=== PATIENT | female | born 1965 | race Caucasian/White ===

== ENCOUNTER 2017-11-21 15:43 | Observation (INO) | payer OTHER ==
--- NOTE | 2017-11-21 17:35 | RAD REPORT ---
EXAM DESCRIPTION: CT - Head Brain Wo Cont - 11/21/2017 5:21 pm CLINICAL HISTORY: Right-sided headache, right-sided facial pain, transient alteration of awareness COMPARISON: CT head November 2008 TECHNIQUE: Axial 5 mm thick images of the head were obtained without IV contrast. All CT scans are performed using dose optimization technique as appropriate and may include automated exposure control or mA/KV adjustment according to patient size. FINDINGS: No intracranial hemorrhage, mass, edema or shift of mid-line structures. No acute infarcti on changes seen. No abnormal extra-axial fluid collections. Ventricles are prominent but not out of p roportion to a mild amount of volume loss. Intracranial findings are similar to the comparison. Mastoid air cells and visualized portions of the paranasal sinuses are clear. No acute bony findings. IMPRESSION: Negative non-contrast CT head examination for acute intracranial finding. CT head exami [place] [facility] is similar to 2008.
--- NOTE | 2017-11-21 17:40 | RAD REPORT ---
EXAM DESCRIPTION: CT - Facial Bones W/ Mpr - 11/21/2017 5:16 pm CLINICAL HISTORY: Right-sided headache, right-sided facial pain COMPARISON: None. TECHNIQUE: Axial 2 millimeter thick images of the facial bones were obtained with sagittal and coron al reconstruction imaging. All CT scans are performed using dose optimization technique as appropriate and may include automated exposure control or mA/KV adjustment according to patient size. FINDINGS: Mastoid air cells are clear. Trace mucosal thickening in the ethmoid air cells. Trace muco maine thickening along the floor of the left maxillary sinus. No air-fluid level. No globe or orbital c ontent abnormality identifiable. No air or foreign body in the soft tissues. Parotid, submandibular glands show no acute finding. No a bnormal mass or lymphadenopathy in the soft tissues. Left-sided mandibular condyle is normally positi oned in the glenoid. Mild degenerative changes are present. Left mandibular condyle is smaller in siz e than the left and positioned adjacent to the articular eminence rather than within the fossa. It is unknown if this is a chronic presentation for the patient or related to a slipped or displaced artic ular disc. Correlation is needed with any focal TM joint symptoms. No bone destructive changes are pr esent. No significant dental decay or destruction identifiable. IMPRESSION: No acute paranasal sinus finding and mastoid air cells are clear. Right-side mandibular condyle is positioned at the articular eminence rather than within the glenoid fossa. Configuration of the condyle suggests remodeling from a chronic dislocation or displacement. P atient could have a chronically displaced articular disc. Correlation is needed with focal acute or c hronic TMJ symptoms.
--- NOTE | 2017-11-21 17:42 | RAD REPORT ---
EXAM DESCRIPTION: RAD - Chest Single View - 11/21/2017 5:27 pm CLINICAL HISTORY: Fever COMPARISON: March 2016 TECHNIQUE: AP portable chest image was obtained 1719 hours . FINDINGS: Lungs are clear. Lung markings are similar to comparison. Heart and vasculature are normal . No measurable pleural effusion and no pneumothorax. No gross bony abnormality seen. No acute aortic findings suspected. IMPRESSION: No acute cardiopulmonary process. No significant change from comparison.
[2017-11-21 18:14] LABS: Urine Blood NEGATIVE (NEG); Urine Glucose NEGATIVE (NEG); Urine Protein NEGATIVE (NEG)
[2017-11-21 19:04] LABS: Protime INR 1.09
[2017-11-21 19:15] LABS: Absolute Lymphocytes (CBC) 0.8 K/uL (0.7-4.9); Absolute Monocytes 0.4 K/uL (0.1-1.3); Absolute Neutrophil 6.6 K/uL (1.8-8.0); Basophils % 0.5 % (0-1.3); Eosinophils % 0.9 % (0-4.4); Hematocrit 36.1 % (36.0-45.0); Lymphocytes % 10.1 % (15.3-44.8); MPV 10.1 fL (7.6-11.3); Monocytes % 4.7 % (3.3-12.3)
[2017-11-21 19:22] LABS: ALT/SGPT 95 U/L (12-78); AST/SGOT 39 U/L (15-37); Albumin 3.5 g/dL (3.4-5.0); Alkaline Phosphatase 336 U/L (45-117); Amylase Level 30 U/L (25-115); BUN Blood Urea Nitrogen 8 mg/dL (7-18); Bicarbonate 27 mmol/L (21-32); Bilirubin Direct < 0.1 mg/dL (0-0.2); Bilirubin Total 0.4 mg/dL (0.2-1.0); CKMB Creatine Kinase MB 3.7 ng/mL (0.3-3.6); Creatine Phosphokinase 350 U/L (26-192); Glucose Level 95 mg/dL (74-106); Potassium 3.5 mmol/L (3.5-5.1); Protein, Total 7.3 g/dL (6.4-8.2); Sodium Level 136 mmol/L (136-145)
--- NOTE | 2017-11-21 19:33 | EDPHYS ---
Physician Documentation [facility] Name: Melba Rooney Age: 52 yrs Sex: Female : 1965 Arrival Date: 11/21/2017 Time: 15:50 Bed 14 Private MD: Yordan Leal E ED Physician Viraj Keenan HPI: 11/21 17:02 This 52 yrs old Female presents to ER via Ambulatory with complaints of Mouth snw Problem, Dizziness. 17:02 The patient presents with pain, swelling. The problem is located in the face. Onset: snw The symptoms/episode began/occurred suddenly, and became worse today, and became persistent. Duration: The symptoms are continuous. Associated signs and symptoms: Pertinent positives: fever, inability to eat, pain. Severity of symptoms: At their worst the symptoms were severe. It is unknown whether or not the patient has had similar symptoms in the past. It is unknown whether or not the patient has recently seen a physician, states she sees Dr. Lozada. 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 - Social history:: Smoking status: Patient uses tobacco products, smokes one pack cigarettes per day. - Ebola Screening: : No symptoms or risks identified at this time. ROS: 17:01 Eyes: Negative for injury, pain, redness, and discharge, Neck: Negative for injury, snw pain, and swelling, Cardiovascular: Negative for chest pain, palpitations, and edema, Respiratory: Negative for shortness of breath, cough, wheezing, and pleuritic chest pain, Abdomen/GI: Negative for abdominal pain, nausea, vomiting, diarrhea, and constipation, Back: Negative for injury and pain, : Negative for injury, bleeding, discharge, and swelling, MS/Extremity: Negative for injury and deformity, Skin: Negative for injury, rash, and discoloration. 17:01 Constitutional: Positive for fever, malaise, poor PO intake. 17:01 ENT: Positive for dental pain. 17:01 Neuro: Positive for dizziness. Exam: 16:57 Eyes: Pupils equal round and reactive to light, extra-ocular motions intact. Lids and snw lashes normal. Conjunctiva and sclera are non-icteric and not injected. Cornea within normal limits. Periorbital areas with no swelling, redness, or edema. 16:57 Neck: Trachea midline, no thyromegaly or masses palpated, and no cervical lymphadenopathy. Supple, full range of motion without nuchal rigidity, or vertebral point tenderness. No Meningismus. Chest/axilla: Normal chest wall appearance and motion. Nontender with no deformity. No lesions are appreciated. 16:57 Respiratory: Lungs have equal breath sounds bilaterally, clear to auscultation and percussion. No rales, rhonchi or wheezes noted. No increased work of breathing, no retractions or nasal flaring. Abdomen/GI: Soft, non-tender, with normal bowel sounds. No distension or tympany. No guarding or rebound. No evidence of tenderness throughout. Back: No spinal tenderness. No costovertebral tenderness. Full range of motion. Skin: Warm, dry with normal turgor. Normal color with no rashes, no lesions, and no evidence of cellulitis. 16:57 Constitutional: The patient appears awake, restless. 16:57 Head/face: Noted is swelling, that is severe, of the right cheek. 16:57 ENT: External ear(s): are unremarkable, Ear canal(s): are normal, TM's: are normal, Nose: is normal, Mouth: Oral mucosa: dry, Posterior pharynx: is normal, Dental exam: missing teeth, diffusely, bilateral upper and lower teeth diffusely broken off at the gum line. 16:57 Cardiovascular: Rate: tachycardic, Rhythm: regular, Pulses: no pulse deficits are appreciated. 16:57 Musculoskeletal/extremity: large scar to left shoulder . 16:57 Neuro: Orientation: appropriate for stated age. 16:57 Psych: Behavior/mood is anxious, requests going to smoke prior to lab draw. Instructed pt to stay on stretcher with side rails up x 2. Vital Signs: 16:13 BP 138 / 95; Pulse 105; Resp 20 S; Temp 103.2(O); Pulse Ox 97% on R/A; Weight 81.65 kg aa5 (R); Height 5 ft. 8 in. (172.72 cm) (R); Pain 8/10; 16:40 BP 131 / 86; Pulse 90; Resp 18; Pulse Ox 96% ; tl3 18:00 BP 125 / 77; Pulse 78; Resp 16; Pulse Ox 98% ; tl3 19:17 BP 125 / 77; Pulse 87; Resp 18; Pulse Ox 99% on R/A; mt 20:30 Temp 98.6(A); fc 20:52 BP 114 / 75; Pulse 79; Resp 18; Pulse Ox 97% on R/A; mt 21:44 BP 139 / 69; Pulse 79; Temp 98.3(O); Pulse Ox 100% on R/A; tl3 16:13 Body Mass Index 27.37 (81.65 kg, 172.72 cm) aa5 Procedures: 18:39 Peripheral line: by aseptic technique a peripheral line was placed in the left external snw jugular vein. MDM: 16:48 Patient medically screened. everett 18:52 Data reviewed: vital signs, nurses notes. Data interpreted: Pulse oximetry: on room air snw is 96 %. ED course: pt requests pain medications and then talks to herself incoherently. Questioned pt as to what medications she took prior to ED, pt does not answer. 11/21 16:45 Order name: Amylase, Serum; Complete Time: 19:23 snw 11/21 16:45 Order name: Basic Metabolic Panel; Complete Time: :23 snw 11/21 16:45 Order name: Blood Culture Adult (2) snw 11/21 16:45 Order name: C-Reactive Protein; Complete Time: 19:23 snw 11/21 16:45 Order name: CBC with Diff; Complete Time: 19:26 snw 11/21 16:45 Order name: Ckmb; Complete Time: 19:23 snw 11/21 16:45 Order name: CPK; Complete Time: 19:23 snw 11/21 16:45 Order name: Lactate; Complete Time: 19:15 snw 11/21 16:45 Order name: LFT's; Complete Time: 19:23 snw 11/21 16:45 Order name: Procalcitonin; Complete Time: 19:26 snw 11/21 16:45 Order name: Protime (+inr); Complete Time: 19:15 snw 11/21 16:45 Order name: Ptt, Activated; Complete Time: 19:15 snw 11/21 16:45 Order name: Sed Rate; Complete Time: 19:26 snw 11/21 16:45 Order name: Troponin (emerg Dept Use Only); Complete Time: 19:15 snw 11/21 16:45 Order name: Chest Single View XRAY; Complete Time: 17:44 snw 11/21 16:45 Order name: CT Facial Bones W/O Con; Complete Time: 17:44 snw 11/21 16:45 Order name: CT Head Brain wo Cont; Complete Time: 17:40 snw 11/21 18:04 Order name: Urine Dipstick--Ancillary (enter results); Complete Time: 18:15 bd 11/21 18:52 Order name: UDS; Complete Time: 21:18 snw 11/21 20:18 Order name: CONS Pharmacy Consult EDMS 11/21 20:18 Order name: NPO EDMS 11/21 20:18 Order name: Echo with Doppler EDMS 11/21 20:18 Order name: Basic Metabolic Panel EDMS 11/21 20:18 Order name: Basic Metabolic Panel EDMS 11/21 20:18 Order name: CBC with Automated Diff EDMS 11/21 20:18 Order name: CBC with Automated Diff EDMS 11/21 20:18 Order name: Brain With Cont EDMS 11/21 16:45 Order name: Accucheck; Complete Time: 19:26 snw 11/21 16:45 Order name: Cardiac monitoring; Complete Time: 19:26 snw 11/21 16:45 Order name: EKG - Nurse/Tech; Complete Time: 19:26 snw 11/21 16:45 Order name: IV Saline Lock - Large Bore; Complete Time: 19:26 snw 11/21 16:45 Order name: Labs collected and sent; Complete Time: 19:26 snw 11/21 16:45 Order name: O2 Per Protocol; Complete Time: 19:26 snw 11/21 16:45 Order name: O2 Sat Monitoring; Complete Time: 19:26 snw 11/21 16:45 Order name: Urine Dipstick-Ancillary (obtain specimen); Complete Time: 19:27 snw 11/21 18:06 Order name: Vital Signs; Complete Time: 19:25 snw Administered Medications: 19:49 Drug: Clindamycin 600 mg Route: IVPB; Infused Over: 30 mins; Site: Other; tl3 21:46 Follow up: IV Status: Completed infusion; IV Intake: 50ml tl3 19:50 Drug: vancoMYCIN 1 grams Route: IVPB; Infused Over: 2 hrs; Site: left jugular; tl3 21:46 Follow up: IV Status: Completed infusion; IV Intake: 250ml tl3 19:56 Drug: NS 0.9% (30 ml/kg) 30 ml/kg Route: IV; Rate: bolus; Site: left jugular; tl3 21:47 Follow up: IV Status: Infusion continued upon admission tl3 Disposition: 11/22 16:18 Co-signature as Attending Physician, Viraj Keenan MD I agree with the assessment and everett plan of care. Disposition: 11/21/17 19:32 Hospitalization ordered by Yi Roy for Inpatient Admission. Preliminary diagnosis are Fever, unspecified, Sepsis, unspecified organism. - Bed requested for Telemetry/MedSurg (Inpatient). - Status is Inpatient Admission. tl3 - Condition is Fair. - Problem is new. - Symptoms are unchanged. UTI on Admission? No Signatures: Dispatcher [employer] EDMS Jennie Villar RN RN mw Anderson, Corey, MD MD cha Therrien, Shelly, MACHINE SPREADER-C MACHINE SPREADER-Csnw Nettie Mueller, RN RN aa5 Marisa Chase, KIRILL RN tl3 Corrections: (The following items were deleted from the chart) 11/21 19:48 19:32 Hospitalization Ordered by Yi Roy MD for Inpatient Admission. Preliminary diagnosis is Fever, unspecified; Sepsis, unspecified organism. Bed requested for Telemetry/MedSurg (Inpatient). Status is Inpatient Admission. Condition is Fair. Problem is new. Symptoms are unchanged. UTI on Admission? No. snw 22:09 19:48 11/21/2017 19:32 Hospitalization Ordered by Yi Roy MD for Inpatient tl3 Admission. Preliminary diagnosis is Fever, unspecified; Sepsis, unspecified organism. Bed requested for Telemetry/MedSurg (Inpatient). Status is Inpatient Admission. Condition is Fair. Problem is new. Symptoms are unchanged. UTI on Admission? No. mw
--- NOTE | 2017-11-21 19:33 | ER ---
Nurse's Notes [facility] Name: Melba Rooney Age: 52 yrs Sex: Female : 1965 Arrival Date: 11/21/2017 Time: 15:50 Bed 14 Private MD: Yordan Leal E Diagnosis: Fever, unspecified;Sepsis, unspecified organism Presentation: 11/21 16:12 Presenting complaint: Patient states: right jaw swelling and pain. Pt states "I have aa5 tooth pain and I woke up with the swelling today". Pt states "I feel a little confused today". Pt currently A \\T\\ O x 4. Transition of care: patient was not received from another setting of care. Onset of symptoms was November 21, 2017. Risk Assessment: Do you want to hurt yourself or someone else? Patient reports no desire to harm self or others. Care prior to arrival: None. 16:12 Method Of Arrival: Ambulatory aa5 16:12 Acuity: NED 2 aa5 19:48 Initial Sepsis Screen: Does the patient meet any 2 criteria? No. Patient's initial tl3 sepsis screen is negative. Does the patient have a suspected source of infection? No. Patient's initial sepsis screen is negative. Triage Assessment: 19:48 General: Appears unkempt. 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 - Social history:: Smoking status: Patient uses tobacco products, smokes one pack cigarettes per day. - Ebola Screening: : No symptoms or risks identified at this time. Screenin:40 Abuse screen: Denies threats or abuse. Nutritional screening: No deficits noted. tl3 Tuberculosis screening: No symptoms or risk factors identified. Fall Risk None identified. Assessment: 16:40 General: Appears comfortable, obese, unkempt, Behavior is cooperative, anxious, flat, tl3 restless. Pain: Complains of pain in mouth pain due to broken tooth. Neuro: Level of Consciousness is awake, obeys commands, confused, Oriented to person, place, situation. Cardiovascular: Heart tones S1 S2 present Patient's skin is warm and dry. Respiratory: Airway is patent Respiratory effort is even, unlabored, Respiratory pattern is regular, symmetrical. GI: No signs and/or symptoms were reported involving the gastrointestinal system. : No signs and/or symptoms were reported regarding the genitourinary system. EENT: No signs and/or symptoms were reported regarding the EENT system. Derm: No signs and/or symptoms reported regarding the dermatologic system. Musculoskeletal: No signs and/or symptoms reported regarding the musculoskeletal system. 18:00 Reassessment: Patient and/or family updated on plan of care and expected duration. Pain tl3 level reassessed. Patient is alert, oriented x 3, equal unlabored respirations, skin warm/dry/pink. pt is sometimes confused and making odd comments. 19:58 Reassessment: Patient appears in no apparent distress at this time. No changes from tl3 previously documented assessment. Patient and/or family updated on plan of care and expected duration. Pain level reassessed. Patient is alert, oriented x 3, equal unlabored respirations, skin warm/dry/pink. pt sleeping, in no distress. 21:44 Reassessment: Patient appears in no apparent distress at this time. No changes from tl3 previously documented assessment. Patient and/or family updated on plan of care and expected duration. Pain level reassessed. Patient is alert, oriented x 3, equal unlabored respirations, skin warm/dry/pink. pt awake, speaking clearly. Vital Signs: 16:13 BP 138 / 95; Pulse 105; Resp 20 S; Temp 103.2(O); Pulse Ox 97% on R/A; Weight 81.65 kg aa5 (R); Height 5 ft. 8 in. (172.72 cm) (R); Pain 8/10; 16:40 BP 131 / 86; Pulse 90; Resp 18; Pulse Ox 96% ; tl3 18:00 BP 125 / 77; Pulse 78; Resp 16; Pulse Ox 98% ; tl3 19:17 BP 125 / 77; Pulse 87; Resp 18; Pulse Ox 99% on R/A; mt 20:30 Temp 98.6(A); fc 20:52 BP 114 / 75; Pulse 79; Resp 18; Pulse Ox 97% on R/A; mt 21:44 BP 139 / 69; Pulse 79; Temp 98.3(O); Pulse Ox 100% on R/A; tl3 16:13 Body Mass Index 27.37 (81.65 kg, 172.72 cm) aa5 ED Course: 15:50 Patient arrived in ED. jb7 15:50 Yordan Leal MD is Private Physician. jb7 16:11 Arm band placed on. aa5 16:12 Triage completed. aa5 16:32 Marisa Chase, RN is Primary Nurse. tl3 16:40 [facility]C [facility] snw 16:40 Viraj Keenan MD is Attending Physician. snw 16:40 Patient has correct armband on for positive identification. Bed in low position. Call tl3 light in reach. Side rails up X2. 16:40 No provider procedures requiring assistance completed. tl3 16:55 X-ray(s) taken. tl3 17:17 CT Facial Bones W/O Con In Process Unspecified. EDMS 17:17 CT Head Brain wo Cont In Process Unspecified. EDMS 17:22 X-ray completed. Portable x-ray completed in exam room. couldn't follow commands to la2 well. 17:23 CT completed. Patient moved back from CT. bq 17:27 Chest Single View XRAY In Process Unspecified. EDMS 18:01 Urine collected: clean catch specimen, clear, leeanna colored. jb1 18:01 EKG done, by ED staff, reviewed by Baylee BOLANOS. jb1 18:43 Inserted saline lock: 18 gauge in left EJ, using aseptic technique. Blood collected. IV iw inserted by Hien Moreno NP. 19:31 Yi Roy MD is Hospitalizing Provider. snw 21:57 Patient admitted, IV remains in place. tl3 Administered Medications: 19:49 Drug: Clindamycin 600 mg Route: IVPB; Infused Over: 30 mins; Site: Other; tl3 21:46 Follow up: IV Status: Completed infusion; IV Intake: 50ml tl3 19:50 Drug: vancoMYCIN 1 grams Route: IVPB; Infused Over: 2 hrs; Site: left jugular; tl3 21:46 Follow up: IV Status: Completed infusion; IV Intake: 250ml tl3 19:56 Drug: NS 0.9% (30 ml/kg) 30 ml/kg Route: IV; Rate: bolus; Site: left jugular; tl3 21:47 Follow up: IV Status: Infusion continued upon admission tl3 Intake: 21:46 IV: 50ml; Total: 50ml. tl3 21:46 IV: 250ml; Total: 300ml. tl3 Outcome: 19:32 Decision to Hospitalize by Provider. snw 21:57 Admitted to Tele accompanied by tech, via wheelchair, with chart, Report called to tl3 Urmila ROY 21:57 Condition: stable 21:57 Instructed on the need for admit. tl3 22:09 Patient left the ED. tl3 Signatures: Dispatcher [employer] EDMS Nba Gifford1 Baylee Moreno, CHIEF PROGRAM OFFICER-C CHIEF PROGRAM OFFICER-Ifeoma Mcginnis Felicia, RN RN Joseline Kent RN RN Nettie Mejía RN RN aa5 Jax Herman7 Carmelina Alves mt, Leslie la2 Lowrey, Tammy, KIRILL RN tl3 Corrections: (The following items were deleted from the chart) 16:17 16:12 Presenting complaint: Patient states: right jaw swelling and pain. Pt states "I aa5 have tooth pain and I woke up with the swelling today". Pt states "I feel a little confused today". aa5
[2017-11-21] MEDS ORDERED: VANCOMYCIN 1 GM/250 ML BAG ONE (19:37)
[2017-11-21] MEDS ORDERED: CLINDAMYCIN 600MG/D5W 600 MG/50 ML BAG IV ONE (19:37)
[2017-11-21] MEDS ORDERED: NA CHLORIDE 0.9% 1,000 ML ONE ×2 (19:54→21:32)
[2017-11-21] MEDS ORDERED: ACETAMINOPHEN 500 MG TAB PO PRN (20:15)
[2017-11-21] MEDS ORDERED: ONDANSETRON 4 MG/2 ML VIAL IV PRN (20:15)
[2017-11-21 21:00] LABS: Barbiturates NEGATIVE (NEGATIVE); Benzodiazepines NEGATIVE (NEGATIVE); Cocaine NEGATIVE (NEGATIVE); METHAMPHETAM NEGATIVE (NEGATIVE); Methadone NEGATIVE (NEGATIVE); Opiates NEGATIVE (NEGATIVE); Phencyclidine NEGATIVE (NEGATIVE); THC Cannibis NEGATIVE (NEGATIVE)
[2017-11-21] MEDS ORDERED: NA CHLORIDE 0.9% 500 ML ONE (21:32)
[2017-11-21 22:19] VITALS: O2SAT 100
[2017-11-21] MEDS: NA CHLORIDE 0.9% 1,000 ML IV SCH (22:38)
[2017-11-21] MEDS: MORPHINE 4 MG/ML SYR IV PRN (22:45)
[2017-11-22] MEDS: MORPHINE 4 MG/ML SYR IV PRN (02:56)
[2017-11-22 05:46] LABS: Absolute Lymphocytes (CBC) 0.9 K/uL (0.7-4.9); Absolute Monocytes 0.3 K/uL (0.1-1.3); Absolute Neutrophil 2.6 K/uL (1.8-8.0); Basophils % 0.4 % (0-1.3); Eosinophils % 1.9 % (0-4.4); Hematocrit 33.5 % (36.0-45.0); Lymphocytes % 23.5 % (15.3-44.8); MCH 31.6 pg (27.0-35.0); MCV 94.8 fL (80-100); MPV 11.1 fL (7.6-11.3); Monocytes % 6.7 % (3.3-12.3); RBC Red Blood Cell Count 3.54 M/uL (3.86-4.86)
[2017-11-22 05:57] LABS: BUN Blood Urea Nitrogen 8 mg/dL (7-18); Bicarbonate 25 mmol/L (21-32); Glucose Level 85 mg/dL (74-106); Potassium 3.6 mmol/L (3.5-5.1); Sodium Level 142 mmol/L (136-145)
[2017-11-22] MEDS ORDERED: LORazepam 2 MG/ML VIAL IV PRN (06:18)
[2017-11-22] MEDS ORDERED: MORPHINE 4 MG/ML SYR IV PRN (06:19)
[2017-11-22] MEDS: NA CHLORIDE 0.9% 1,000 ML IV SCH ×2 (06:22→16:14)
[2017-11-22 06:23] LABS: Blood Morphology Comment NOT SEEN (NOT SEEN); Platelet Estimate DECR; Urine White Blood Cell Casts OK
--- NOTE | 2017-11-22 06:23 | P.HP ---
Certification for Inpatient Patient admitted to: Observation With expected LOS: <2 Midnights Patient will require the following post-hospital care: None Practitioner: I am a practitioner with admitting privileges, knowledge of patient current condition, hospital course, and medical plan of care. Services: Services provided to patient in accordance with Admission requirements found in Title 42 Section 412.3 of the Code of Federal Regulations Patient History Date of Service: 11/21/17 Reason for admission: Fever/altered mental status History of Present Illness: Patient is a 52-year-old female who has a longstanding history of MRSA infection. Patient woke up today and had confusion. She was not able to get her words out properly. Whenever she would ambulate she would drift to the right side. She states that she did not take any new medicines. She came to the hospital to be evaluated. In the ER she is still not making a lot of sense. The ER nurse practitioner was concerned that she may have had a TIA a or some other infectious cause of her altered mentation. Will admit her to the hospital and get a echocardiogram because she has dental care recent and there is concern for endocarditis. We will also get an MRI to evaluate her altered mentation. Patient is still communicating very poorly at this time and will reassess her tomorrow morning. Allergies No Known Allergies Allergy (Verified 04/14/16 08:59) Home Medications: Lisinopril [Prinivil*] 20 mg PO DAILY 10/22/16 ALPRAZolam [Alprazolam] 1 tab PO TID PRN 11/22/17 Cyclobenzaprine HCl 1 tab PO TID 11/22/17 Fluoxetine HCl [Prozac] 1 cap PO DAILY 11/22/17 Gabapentin 1 cap PO TID 11/22/17 Hydrocodone 10/APAP 325 [[place] 10/325] 1 tab PO Q6H PRN 11/22/17 Trazodone HCl 100 mg PO BEDTIME 11/22/17 - Past Medical/Surgical History Has patient received pneumonia vaccine in the past: No Diabetic: No -: HTN -: GERD -: Ulcers -: Depression -: MRSA infection -: Hysterectomy -: -: Cholecystectomy -: Left Upper arm surgery x 8 -: Incision and debridement for MRSA - Family History Father History Unknown: Yes Notes: pt was adopted Mother History Unknown: Yes Notes: pt was adopted - Social History Smoking Status: Current every day smoker Alcohol use: No CD- Drugs: No Caffeine use: Yes Place of Residence: Home Review of Systems 10-point ROS is otherwise unremarkable Physical Examination - Vital Signs Temperature: 97.0 F Blood Pressure: 118/66 Pulse: 74 Respirations: 18 Pulse Ox (%): 94 - Physical Exam General: Alert, In no apparent distress, Oriented x3 HEENT: Atraumatic, PERRLA, Mucous membr. moist/pink, EOMI, Sclerae nonicteric Neck: Supple, 2+ carotid pulse no bruit, No LAD, Without JVD or thyroid abnormality Respiratory: Clear to auscultation bilaterally, Normal air movement Cardiovascular: Regular rate/rhythm, Normal S1 S2, No murmurs Gastrointestinal: Normal bowel sounds, Soft and benign, Non-distended, No tenderness, No rebound, No guarding Musculoskeletal: No clubbing, No swelling, No tenderness Integumentary: No rashes Neurological: Normal gait, Normal speech, Normal strength at 5/5 x4 extr, Normal tone, Sensation intact, Cranial nerves 3-12 intact, Normal affect Lymphatics: No axilla or inguinal lymphadenopathy - Studies Laboratory Data (last 24 hrs) 11/21/17 18:30: PT 12.9 H, INR 1.09, APTT 30.9 11/21/17 18:30: WBC 7.9, Hgb 12.2, Hct 36.1, Plt Count 104 L 11/21/17 18:30: Sodium 136, Potassium 3.5, BUN 8, Creatinine 0.70, Glucose 95, Total Bilirubin 0.4, AST 39 H, ALT 95 H, Alkaline Phosphatase 336 H, Amylase 30 Assessment & Plan - Problems (Diagnosis) (1) Altered mental status Current Visit: Yes Status: Acute (2) Aphasia Current Visit: Yes Status: Acute (3) Right sided weakness Current Visit: Yes Status: Acute (4) History of MRSA infection Current Visit: No Status: Acute - Plan Plan: 1. Blood culture x2 2. Echocardiogram 3. MRI of the brain 4. Monitor labs closely 5. PT evaluation if her symptoms do not improve 6. Speech therapy evaluation if the aphasia continues 7. Anti-platelet therapy 8. DVT prophylaxis - Advance Directives Does patient have a Living Will: No Does patient have a Durable POA for Healthcare: No
[2017-11-22] MEDS ORDERED: PNEUMOCOCCAL VACCINE 0.5 ML IMVAC ONE (08:00)
--- NOTE | 2017-11-22 08:46 | RAD REPORT ---
EXAM DESCRIPTION: VASCarotid Artery Bilateral11/22/2017 8:24 am CLINICAL HISTORY: Ataxia COMPARISON: None FINDINGS: The velocity of the right internal carotid artery equals 118 cm/sec. The right ICA/CCA rat io 1.3 The velocity of the left internal carotid artery equals 98 cm/sec. The left ICA/CCA ratio 0.9 Mild plaque is present within the carotid arteries. The vertebral arteries demonstrate antegrade flow IMPRESSION: Mild plaque within the carotid arteries without evidence of a hemodynamically significan t stenosis
--- NOTE | 2017-11-22 08:51 | RAD REPORT ---
EXAM DESCRIPTION: US - Liver Only - 11/22/2017 8:25 am CLINICAL HISTORY: Abdominal pain/ elevated liver function test enzymes COMPARISON: 2009 FINDINGS: The liver has a normal echotexture. Hepatopetal flow seen. A discrete lesion is not visual ized. The gallbladder has been removed. The common bile duct measures 1 centimeter The spleen measures 14 centimeters. IMPRESSION: Unremarkable liver ultrasound Mild dilatation of the common bile duct may be a normal finding in this patient status post cholecyst ectomy. However, this should be correlated clinically and with appropriate lab values. Mild splenomegaly
--- NOTE | 2017-11-22 08:55 | P.PN ---
Subjective Date of Service: 11/22/17 Primary Care Provider: Dr. Ramirez Chief Complaint: Fever/altered mental status Subjective: Improving (Patient is better. No difficulty with her speech. She does have some swelling to the right facial region. Pain to her teeth is noted. Patient reports a history of chronic pain, depression, hypertension.) Physical Examination - Vital Signs Temperature: 97.0 F Blood Pressure: 118/66 Pulse: 74 Respirations: 18 Pulse Ox (%): 94 - Physical Exam General: Alert, In no apparent distress, Oriented x3, Cooperative HEENT: Atraumatic, Other (Swelling to the right facial region. Poor dentition noted throughout. Pain to the right facial area) Neck: Supple Respiratory: Clear to auscultation bilaterally, Normal air movement Cardiovascular: Normal pulses, Regular rate/rhythm Gastrointestinal: Normal bowel sounds, Soft and benign, Non-distended, No tenderness, No masses, No rebound, No guarding Musculoskeletal: No erythema, No tenderness, No warmth Integumentary: No erythema, No warmth, No cyanosis, Other (As above) Neurological: Normal speech, Normal strength at 5/5 x4 extr, Normal tone, Normal affect Lymphatics: No axilla or inguinal lymphadenopathy - Studies Laboratory Data (last 24 hrs) 11/21/17 18:30: PT 12.9 H, INR 1.09, APTT 30.9 11/21/17 18:30: WBC 7.9, Hgb 12.2, Hct 36.1, Plt Count 104 L 11/21/17 18:30: Sodium 136, Potassium 3.5, BUN 8, Creatinine 0.70, Glucose 95, Total Bilirubin 0.4, AST 39 H, ALT 95 H, Alkaline Phosphatase 336 H, Amylase 30 Medications List Reviewed: Yes Assessment & Plan - Problems (Diagnosis) (1) Facial cellulitis Current Visit: Yes Status: Acute Plan: Right-sided facial cellulitis noted with poor dentition. Pain with palpation noted. Will provide medication for pain. Will obtain MRI to further assess. Will start clindamycin. Will monitor and adjust. Patient will need to see Oral surgery as an outpatient. (2) Poor dentition Current Visit: Yes Status: Chronic Plan: Patient will need to see Oral surgery as an outpatient (3) Hypertension Current Visit: Yes Status: Chronic Plan: Will continue with her medication. Blood pressure stable. Qualifiers: Hypertension type: essential hypertension Qualified Code(s): I10 - Essential (primary) hypertension (4) Depression Current Visit: Yes Status: Chronic Plan: Will continue with her medications. Qualifiers: Depression Type: unspecified Qualified Code(s): F32.9 - Major depressive disorder, single episode, unspecified (5) Chronic pain Current Visit: Yes Status: Chronic Plan: Patient with chronic pain. Will limit muscle relaxer. Will provide medication for pain. Qualifiers: Chronic pain type: chronic pain syndrome Qualified Code(s): G89.4 - Chronic pain syndrome (6) Elevated liver function tests Current Visit: Yes Status: Acute Plan: Patient with elevated liver function. Suspect chronic hepatitis. Will check liver ultrasound. Will send for hepatitis panel. (7) Altered mental status Onset Date: 11/22/17 Current Visit: Yes Status: Acute Plan: Likely from her infection and possible over use of her pain medication and muscle relaxer. Patient appears to be at her baseline level. Will check MRI to further assess. (8) Thrombocytopenia Current Visit: Yes Status: Acute Plan: Will access for Hepatitis. Will monitor. Discharge Plan: Home Plan to discharge in: 24 Hours Time Spent Managing Pts Care (In Minutes): 55
--- NOTE | 2017-11-22 09:05 | RAD REPORT ---
EXAM DESCRIPTION: MRI - Brain Wo Cont - 11/22/2017 8:24 am CLINICAL HISTORY: Slurred speech/left sided weakness COMPARISON: none TECHNIQUE: Axial, sagittal, and coronal magnetic resonance images of the brain were obtained. Contra st was not requested FINDINGS: No abnormal signal is present within the brain. Diffusion-weighted/ADC mapping does not reveal evidence of acute infarction. The ventricles are normal caliber. An extra-axial fluid collection is not present Minimal mucoperiosteal thickening of the sinuses is noted. Mastoids are clear. IMPRESSION: Unremarkable unenhanced brain MRI
--- NOTE | 2017-11-22 09:07 | RAD REPORT ---
EXAM DESCRIPTION: MRI - MRA Head Wo Cont - 11/22/2017 8:24 am CLINICAL HISTORY: TIA/slurred speech COMPARISON: None. TECHNIQUE: Magnetic resonance angiogram of the head was performed. Source images were reviewed and reconstructed at 360 degrees rotation. FINDINGS: The visualized anterior cerebral, middle cerebral, posterior cerebral, basilar and distal internal carotid arteries do not demonstrate a significant stenosis. origin left posterior cerebral artery is present. An aneurysm is not seen IMPRESSION: Unremarkable MRA head
[2017-11-22] MEDS: ASPIRIN EC 81 MG TAB PO SCH (09:33)
--- NOTE | 2017-11-22 09:33 | EKG ---
Test Date: 2017-11-21 Test Time: 17:52:49 Activity Director: GOLD MEASUREMENT RESULTS: Intervals: Rate: 82 NC: 116 QRSD: 90 QT: 394 QTc: 460 [place]: P: 29 NC: 116 QRS: 24 T: 31 INTERPRETIVE STATEMENTS: Normal sinus rhythm Normal ECG Compared to ECG 10/22/2016 11:47:47 No significant changes Electronically Signed On 11-22-17 09:33:07 CDT by Hussein Lawrence
[2017-11-22] MEDS: GABAPENTIN 400 MG CAP PO SCH ×3 (09:34→21:22)
[2017-11-22] MEDS: FLUOXETINE 20 MG CAP PO SCH (09:35)
[2017-11-22] MEDS: CYCLOBENZAPRINE 10 MG TAB PO SCH ×3 (09:35→21:22)
[2017-11-22] MEDS: LISINOPRIL 10 MG TAB PO SCH (09:35)
[2017-11-22] MEDS: CLINDAMYCIN INJ 600 MG in NA CHLORIDE 0.9% 50 ML IV SCH ×2 (09:36→16:11)
[2017-11-22] MEDS: HYDROCODONE/APAP 10/325 TAB PO PRN ×3 (09:43→23:39)
[2017-11-22] MEDS: ALPRAZOLAM 0.25 MG TABLET PO PRN (09:46)
--- NOTE | 2017-11-22 15:32 | ECHO ---
HEIGHT: 5 ft 8 in WEIGHT: 181 lb 1 oz DATE OF STUDY: 11/22/[address]: Yi Roy MD 2-DIMENSIONAL: YES M.MODE: YES DOPPLER: YES COLOR FLOW: YES TDS: PORTABLE: DEFINITY: BUBBLE STUDY: DIAGNOSIS: ALTERED MENTAL STATUS, MURMUR CARDIAC HISTORY: CATHERIZATION: NO SURGERY: NO PROSTHETIC VALVE: NO PACEMAKER: NO MEASUREMENTS (cm) DIASTOLIC (NORMALS) SYSTOLIC (NORMALS) IVSd 0.7 (0.6-1.2) LA Diam 3.5 (1.9-4.0) LVEF 65% LVIDd 4.7 (3.5-5.7) LVIDs 3.0 (2.0-3.5) %FS 36% LVPWd 0.9 (0.6-1.2) Ao Diam 2.8 (2.0-3.7) 2 DIMENSIONAL ASSESSMENT: RIGHT ATRIUM: NORMAL LEFT ATRIUM: NORMAL RIGHT VENTRICLE: NORMAL LEFT VENTRICLE: NORMAL TRICUSPID VALVE: NORMAL MITRAL VALVE: NORMAL PULMONIC VALVE: NORMAL AORTIC VALVE: NORMAL PERICARDIAL EFFUSION: NONE AORTIC ROOT: NORMAL LEFT VENTRICULAR WALL MOTION: NORMAL DOPPLER/COLOR FLOW: MILD MITRAL REGURGITATION AND TRICUSPID REGURGITATION. NORMAL RIGHT VENTRICULAR SYSTOLIC PRESSURE. COMMENTS: NORMAL TWO DIMENSIONAL ECHOCARDIOGRAM. MILD MITRAL REGURGITATION AND TRICUSPID REGURGITATION. TECHNOLOGIST: ESTRADA SEWELL
[2017-11-22] MEDS ORDERED: ENOXAPARIN 40 MG/0.4 ML SQ SCH (17:00)
[2017-11-22] MEDS ORDERED: LOPERAMIDE HCL 2 MG CAPSULE PO PRN (19:05)
[2017-11-22] MEDS: CARVEDILOL 6.25 MG TAB PO SCH (21:00)
[2017-11-22] MEDS ORDERED: ATORVASTATIN 40 MG TAB PO SCH (21:00)
[2017-11-22] MEDS ORDERED: TRAZODONE 50 MG TABLET PO SCH (21:00)
[2017-11-23] MEDS: CLINDAMYCIN INJ 600 MG in NA CHLORIDE 0.9% 50 ML IV SCH ×2 (00:33→09:32)
[2017-11-23] MEDS: NA CHLORIDE 0.9% 1,000 ML IV SCH (04:26)
[2017-11-23] MEDS: HYDROCODONE/APAP 10/325 TAB PO PRN ×2 (05:08→10:36)
[2017-11-23 05:12] VITALS: BMI 27.6
[2017-11-23 05:26] LABS: Absolute Lymphocytes (CBC) 0.8 K/uL (0.7-4.9); Absolute Monocytes 0.2 K/uL (0.1-1.3); Basophils % 0.4 % (0-1.3); Eosinophils % 2.9 % (0-4.4); Hematocrit 30.7 % (36.0-45.0); Lymphocytes % 26.6 % (15.3-44.8); MCH 32.9 pg (27.0-35.0); MCV 95.1 fL (80-100); MPV 10.5 fL (7.6-11.3); RBC Red Blood Cell Count 3.23 M/uL (3.86-4.86)
[2017-11-23 05:45] LABS: Albumin 2.7 g/dL (3.4-5.0); Bilirubin Total 0.2 mg/dL (0.2-1.0); Magnesium 1.8 mg/dL (1.8-2.4); Potassium 3.5 mmol/L (3.5-5.1); Protein, Total 6.1 g/dL (6.4-8.2)
[2017-11-23] MEDS ORDERED: MAGNESIUM SULFATE 1 gm IVPB 1 GM/100 ML BAG IV ONE (05:56)
[2017-11-23] MEDS ORDERED: PANTOPRAZOLE 40MG TABLET PO SCH (06:30)
[2017-11-23] MEDS: LISINOPRIL 10 MG TAB PO SCH (09:24)
[2017-11-23] MEDS: ASPIRIN EC 81 MG TAB PO SCH (09:24)
[2017-11-23] MEDS: CARVEDILOL 6.25 MG TAB PO SCH (09:25)
[2017-11-23] MEDS: FLUOXETINE 20 MG CAP PO SCH (09:25)
[2017-11-23] MEDS: CYCLOBENZAPRINE 10 MG TAB PO SCH (09:25)
[2017-11-23] MEDS: GABAPENTIN 400 MG CAP PO SCH (09:25)
[2017-11-23] MEDS: ALPRAZOLAM 0.25 MG TABLET PO PRN (09:30)
[2017-11-23 09:32] VITALS: BP 135/86
[2017-11-23 09:59] VITALS: TEMP 97.4
--- NOTE | 2017-11-23 10:50 | P.DS ---
Admission Date: 11/21/17 Discharge Date: 11/23/17 Primary Care Provider: Dr. Ramirez Disposition: ROUTINE DISCHARGE Discharge Condition: GOOD Reason for Admission: Fever/altered mental status Procedures: MRI/MRA brain: No acute changes noted. No CVA noted. Echocardiogram: Ejection fraction 65%. Mild mitral and tricuspid regurgitation noted Carotid Doppler: No significant stenosis noted. Liver ultrasound: Mild splenomegaly noted. CT scan face: FINDINGS: Mastoid air cells are clear. Trace mucosal thickening in the ethmoid air cells. Trace mucosal thickening along the floor of the left maxillary sinus. No air-fluid level. No globe or orbital content abnormality identifiable. No air or foreign body in the soft tissues. Parotid, submandibular glands show no acute finding. No abnormal mass or lymphadenopathy in the soft tissues. Left- sided mandibular condyle is normally positioned in the glenoid. Mild degenerative changes are present. Left mandibular condyle is smaller in size than the left and positioned adjacent to the articular eminence rather than within the fossa. It is unknown if this is a chronic presentation for the patient or related to a slipped or displaced articular disc. Correlation is needed with any focal TM joint symptoms. No bone destructive changes are present. No significant dental decay or destruction identifiable. IMPRESSION: No acute paranasal sinus finding and mastoid air cells are clear. Right-side mandibular condyle is positioned at the articular eminence rather than within the glenoid fossa. Configuration of the condyle suggests remodeling from a chronic dislocation or displacement. Patient could have a chronically displaced articular disc. Correlation is needed with focal acute or chronic TMJ symptoms. - Problems (1) Facial cellulitis Current Visit: Yes Status: Acute (2) Poor dentition Current Visit: Yes Status: Chronic (3) Hypertension Current Visit: Yes Status: Chronic Qualifiers: Hypertension type: essential hypertension Qualified Code(s): I10 - Essential (primary) hypertension (4) Depression Current Visit: Yes Status: Chronic Qualifiers: Depression Type: unspecified Qualified Code(s): F32.9 - Major depressive disorder, single episode, unspecified (5) Chronic pain Current Visit: Yes Status: Chronic Qualifiers: Chronic pain type: chronic pain syndrome Qualified Code(s): G89.4 - Chronic pain syndrome (6) Elevated liver function tests Current Visit: Yes Status: Acute (7) Altered mental status Onset Date: 11/22/17 Current Visit: Yes Status: Acute Qualifiers: Altered mental status type: unspecified Qualified Code(s): R41.82 - Altered mental status, unspecified (8) Thrombocytopenia Current Visit: Yes Status: Acute (9) Dislocation of mandible Current Visit: Yes Status: Suspected Brief History of Present Illness: 52-year-old female presented to emergency room after some confusion when she woke up upon admission. Patient had some difficulty talking. Patient had recently been evaluated as an outpatient for poor dentition and dental infection. In the ER initial CT scan was unremarkable. The patient was admitted for further evaluation. Hospital Course: In the course of her stay her altered mental status resolved. Patient was found to have right facial cellulitis with poor dentition. Facial CT scan showed no acute findings. Right sided mandibular condyle is positioned at the articular eminence rather than then within the glenoid fossa. This likely suggests remodeling from a chronic dislocation or displacement. The patient was treated with IV antibiotic therapy. Her condition improved. At discharge she will continue with clindamycin 300 mg 1 pill 3 times a day for 10 days. She is to monitor for diarrhea. Recommendation is for the patient to follow up with oral surgery for further intervention. Multiple teeth may need to be removed. Possible Dislocation may need to be further assess and treated. Patient had workup for possible stroke. No stroke was identified. MRI/MRA brain showed no acute stroke. Carotid Doppler showed no acute abnormality. Echocardiogram was normal with ejection fraction of 65%. Stroke was ruled out. Her confusion and difficulty with speech was likely related to her facial cellulitis. Patient also has chronic pain. There is a possibility that she over took her pain medication and muscle relaxer. Patient remained stable at discharge. Patient may continue with her muscle relaxer and pain medication. Patient takes Flexeril 3 times a day as needed, [place] 10 3 times a day as needed for pain, Neurontin 400 mg 3 times a day. All medications may need to be adjusted. She is to limit her medication. Recommendation is for the patient establish care with pain management to further evaluate and treat. Recommendation to decrease pain medication and muscle relaxer. Patient understands this and agrees. Patient has hypertension. Medications have been adjusted during her stay. Lisinopril has been discontinued in favor for carvedilol. Patient will continue with her medication-carvedilol 6.25 mg 1 pill twice daily. Recommendation is to maintain blood pressures less 150/80. Further adjustment can be done by her PCP. Patient has GERD. Patient will continue with Protonix 40 mg 1 pill once daily. Patient had elevated liver function tests upon admission. Patient also had thrombocytopenia. Hepatitis panel was obtained and is pending at discharge. This can be followed up by her PCP. Splenomegaly noted on abdominal ultrasound. Patient may need to be further assessed by GI as an outpatient if hepatic disease is suspected. Patient has depression with anxiety. Patient continue with her medication Prozac 40 mg daily, trazodone, Xanax. Medications may need to be adjusted by her PCP. She is to limit the use of trazodone and Xanax. Recommendation is to recheck lab-CMP and CBC in 1 week to monitor progress. This can be done by her PCP. Vital Signs/Physical Exam: Temp Pulse Resp BP Pulse Ox 97.4 F 75 20 135/86 95 11/23/17 08:00 11/23/17 09:25 11/23/17 08:00 11/23/17 09:25 11/23/17 08:00 General: Alert, In no apparent distress, Oriented x3, Cooperative HEENT: Atraumatic, Other (Mild swelling noted to the right mandibular region.No significant erythema noted. Poor dentition noted.) Neck: Supple Respiratory: Clear to auscultation bilaterally, Normal air movement Cardiovascular: Normal pulses, Regular rate/rhythm Gastrointestinal: Normal bowel sounds, Soft and benign, Non-distended, No tenderness, No masses, No rebound, No guarding Musculoskeletal: No erythema, No tenderness, No warmth Integumentary: No erythema, No warmth, No cyanosis, Other (As above) Neurological: Normal speech, Normal strength at 5/5 x4 extr, Normal tone, Normal affect Laboratory Data at Discharge: WBC 3.1 K/uL (4.3-10.9) L D 11/23/17 04:10 Hgb 10.6 g/dL (12.0-15.0) L 11/23/17 04:10 Hct 30.7 % (36.0-45.0) L 11/23/17 04:10 Plt Count 80 K/uL (152-406) L 11/23/17 04:10 PT 12.9 SECONDS (9.5-12.5) H 11/21/17 18:30 INR 1.09 11/21/17 18:30 APTT 30.9 SECONDS (24.3-36.9) 11/21/17 18:30 Sodium 144 mmol/L (136-145) 11/23/17 04:10 Potassium 3.5 mmol/L (3.5-5.1) 11/23/17 04:10 BUN 9 mg/dL (7-18) 11/23/17 04:10 Creatinine 0.70 mg/dL (0.55-1.3) 11/23/17 04:10 Glucose 105 mg/dL (74-106) 11/23/17 04:10 Magnesium 1.8 mg/dL (1.8-2.4) 11/23/17 04:10 Total Bilirubin 0.2 mg/dL (0.2-1.0) 11/23/17 04:10 AST 20 U/L (15-37) 11/23/17 04:10 ALT 52 U/L (12-78) 11/23/17 04:10 Alkaline Phosphatase 245 U/L (45-117) H 11/23/17 04:10 Triglycerides 71 mg/dL (<150) 11/22/17 05:21 Cholesterol 106 mg/dL (<200) 11/22/17 05:21 HDL Cholesterol 36 mg/dL (40-60) L 11/22/17 05:21 Cholesterol/HDL Ratio 2.94 11/22/17 05:21 Amylase 30 U/L (25-115) 11/21/17 18:30 Home Medications: ALPRAZolam [Alprazolam] 1 tab PO TID PRN 11/22/17 Cyclobenzaprine HCl 1 tab PO TID 11/22/17 Fluoxetine HCl [Prozac] 1 cap PO DAILY 11/22/17 Gabapentin 1 cap PO TID 11/22/17 Hydrocodone 10/APAP 325 [[place] 10/325*] 1 tab PO Q6H PRN 11/22/17 Trazodone HCl 100 mg PO BEDTIME 11/22/17 Carvedilol [Coreg*] 6.25 mg PO BID #60 tab 11/23/17 Clindamycin HCl 300 mg PO TID #30 capsule 11/23/17 Pantoprazole [Protonix Tab*] 40 mg PO DAILYAC #30 tab 11/23/17 New Medications: Carvedilol [Coreg*] 6.25 mg PO BID #60 tab Clindamycin HCl 300 mg PO TID #30 capsule Pantoprazole [Protonix Tab*] 40 mg PO DAILYAC #30 tab Patient Discharge Instructions: 1. Patient will need a follow up the PCP in 1 week to follow up this hospitalization. 2. Patient was found to have right facial cellulitis with poor dentition. Facial CT scan showed no acute findings. Right sided mandibular condyle is positioned at the articular eminence rather than then within the glenoid fossa. This likely suggests remodeling from a chronic dislocation or displacement. The patient was treated with IV antibiotic therapy. At discharge she will continue with clindamycin 300 mg 1 pill 3 times a day for 10 days. She is to monitor for diarrhea. Recommendation is for the patient to follow up with oral surgery for further intervention. Multiple teeth may need to be removed. Possible Dislocation may need to be further assess and treated. 3. Patient had workup for possible stroke. No stroke was identified. MRI/MRA brain showed no acute stroke. Carotid Doppler showed no acute abnormality. Echocardiogram was normal with ejection fraction of 65%. Stroke was ruled out. Her confusion and difficulty with speech was likely related to her facial cellulitis and possible overmedication. At discharge she will continue with aspirin 81 mg daily. Patient may continue with her muscle relaxer and pain medication. Patient takes Flexeril 3 times a day as needed, [place] 10 3 times a day as needed for pain, Neurontin 400 mg 3 times a day. All medications may need to be adjusted and/or decreased. She is to limit her medication. Recommendation is for the patient establish care with pain management to further evaluate and treat. 4. Patient has hypertension. Medications have been adjusted during her stay. Lisinopril has been discontinued in favor for carvedilol. Patient will continue with her medication-carvedilol 6.25 mg 1 pill twice daily. Recommendation is to maintain blood pressures less 150/80. Further adjustment can be done by her PCP. 5. Patient has GERD. Patient will continue with Protonix 40 mg 1 pill once daily. 6. Patient had elevated liver function tests upon admission. Patient also had thrombocytopenia. Hepatitis panel was obtained and is pending at discharge. This can be followed up by her PCP. Splenomegaly noted on abdominal ultrasound. Patient may need to be further assessed by GI as an outpatient if hepatic disease is suspected. 7. Patient has depression with anxiety. Patient continue with her medication Prozac 40 mg daily, trazodone, Xanax. Medications may need to be adjusted by her PCP. She is to limit the use of trazodone and Xanax. 8. Recommendation is to recheck lab-CMP and CBC in 1 week to monitor progress. This can be done by her PCP. Diet: AHA Activity: Ad tomi Time spent managing pt's care (in minutes): 55
[2017-11-25 02:20] LABS: HBsAG Nonreactive (Nonreactive); Hepatitis A IgM Antibody Nonreactive
== END 2017-11-23 13:25 | disposition home or self-care (01) ==
LOC: ER 15:43 → ERHOLD 20:26 → 4TH 20:32
PROVIDERS: ADMIT Hospitalist; ATTEND Hospitalist
DX: L03.211 Cellulitis of face (principal); I10 Essential (primary) hypertension; K21.9 Gastro-esophageal reflux disease without esophagitis; R79.89 Other specified abnormal findings of blood chemistry; D69.6 Thrombocytopenia, unspecified; F41.8 Other specified anxiety disorders; K08.89 Other specified disorders of teeth and supporting structures
CPT/HCPCS: 36415 ×2; 70450; 70486; 70544; 70551; 71045; 76377; 76705; 80048 ×2; 80053; 80061; 80074; 80076; 80307 ×8; 81003; 82150; 82550; 82553; 83605; 83735; 84145; 84484; 85025 ×3; 85610; 85652; 85730; 86140; 87040 ×2; 92523; 93005; 93306; 93880; 97163; 99285; G0378 ×2; J1650; J3370; J3475; J7030 ×4

== ENCOUNTER 2018-01-06 16:06 | Emergency (ER) | payer OTHER ==
[2018-01-06 17:23] LABS: Absolute Lymphocytes (CBC) 0.7 K/uL (0.7-4.9); Absolute Monocytes 0.4 K/uL (0.1-1.3); Absolute Neutrophil 5.1 K/uL (1.8-8.0); Basophils % 0.4 % (0-1.3); Eosinophils % 1.7 % (0-4.4); Hematocrit 34.7 % (36.0-45.0); Lymphocytes % 11.7 % (15.3-44.8); MCH 32.7 pg (27.0-35.0); MPV 10.9 fL (7.6-11.3); Monocytes % 6.1 % (3.3-12.3); RBC Red Blood Cell Count 3.66 M/uL (3.86-4.86)
[2018-01-06 17:31] LABS: Barbiturates NEGATIVE (NEGATIVE); Benzodiazepines POSITIVE (NEGATIVE); Cocaine NEGATIVE (NEGATIVE); METHAMPHETAM NEGATIVE (NEGATIVE); Methadone NEGATIVE (NEGATIVE); Opiates POSITIVE (NEGATIVE); Phencyclidine NEGATIVE (NEGATIVE); THC Cannibis NEGATIVE (NEGATIVE)
[2018-01-06 17:32] LABS: Urine Blood NEGATIVE (NEG); Urine Glucose NEGATIVE (NEG); Urine Protein NEGATIVE (NEG); Urine pH 6.5 (5.0-7.0)
[2018-01-06 17:48] LABS: Albumin 3.3 g/dL (3.4-5.0); Bilirubin Direct 0.1 mg/dL (0-0.2); Bilirubin Total 0.4 mg/dL (0.2-1.0); Potassium 3.9 mmol/L (3.5-5.1); Protein, Total 7.3 g/dL (6.4-8.2)
--- NOTE | 2018-01-06 17:51 | ER ---
Nurse's Notes [facility] Name: Melba Rooney Age: 52 yrs Sex: Female : 1965 Arrival Date: 01/06/2018 Time: 16:08 Bed 13 Private MD: Harinder Nieto Diagnosis: Cutaneous abscess of groin Presentation: 01/06 16:20 Presenting complaint: Patient states: I get abscesses and infections all the time. I ch have one on my privates that hurts a lot, and one on the back of my leg that is getting worse. I got lots of green pus and white chunks out of both of them. started Wednesday. I feel feverish at home. Transition of care: patient was not received from another setting of care. Onset of symptoms was January 03, 2018. 16:20 Risk Assessment: Do you want to hurt yourself or someone else? Patient reports no ch desire to harm self or others. Initial Sepsis Screen: Does the patient meet any 2 criteria? No. Patient's initial sepsis screen is negative. Does the patient have a suspected source of infection? Yes: Skin breakdown/wound. Care prior to arrival: None. 16:20 Acuity: NED 4 16:37 Method Of Arrival: Ambulatory Triage Assessment: 16:41 General: Appears in no apparent distress. comfortable, Behavior is anxious, restless. ch Pain: Complains of pain in left labia majora, left labia minora and left hamstring Pain currently is 8 out of 10 on a pain scale. Neuro: No deficits noted. Cardiovascular: No deficits noted. Respiratory: Airway is patent Respiratory effort is even, unlabored. GI: No signs and/or symptoms were reported involving the gastrointestinal system. : No signs and/or symptoms were reported regarding the genitourinary system. Derm: Skin is pink, warm \T\ dry. pt has multiple sores on her body, including on with a medium amount of redness to the back of her L thigh, and redness and inflamation of entire L labia. Musculoskeletal: No signs and/or symptoms reported regarding the musculoskeletal system. 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 - Social history:: Smoking status: Patient uses tobacco products, smokes one pack cigarettes per day. Patient/guardian denies using alcohol, street drugs. - Ebola Screening: : Patient negative for fever greater than or equal to 101.5 degrees Fahrenheit, and additional compatible Ebola Virus Disease symptoms Patient denies exposure to infectious person Patient denies travel to an Ebola-affected area in the 21 days before illness onset No symptoms or risks identified at this time. Screenin:44 Abuse screen: Denies threats or abuse. Denies injuries from another. Nutritional screening: No deficits noted. Tuberculosis screening: No symptoms or risk factors identified. Fall Risk None identified. Assessment: 16:44 Reassessment: Patient appears in no apparent distress at this time. No changes from previously documented assessment. 17:35 Reassessment: Patient appears in no apparent distress at this time. No changes from previously documented assessment. Patient is alert, oriented x 3, equal unlabored respirations, skin warm/dry/pink. 18:07 Reassessment: Patient appears in no apparent distress at this time. No changes from previously documented assessment. Patient and/or family updated on plan of care and expected duration. Pain level reassessed. Patient is alert, oriented x 3, equal unlabored respirations, skin warm/dry/pink. 18:07 Reassessment: pt pt states she wants to go outside to smoke. pt notified we are a no smoking campus. pt states she wants to go home then. Clifton notified, pt to be discharged with prescription. Vital Signs: 16:41 BP 153 / 86; Pulse 82; Resp 14; Temp 97.4; Pulse Ox 99% on R/A; Weight 81.65 kg; Height 5 ft. 8 in. (172.72 cm); Pain 8/10; 17:35 BP 146 / 72; Pulse 76; Resp 15; Temp 98.3; Pulse Ox 99% on R/A; Pain 8/10; ch 16:41 Body Mass Index 27.37 (81.65 kg, 172.72 cm) ED Course: 16:08 Patient arrived in ED. mr 16:09 Harinder Nieto MD is Private Physician. mr 16:12 [facility] pm1 16:12 Ernesto Valente MD is Attending Physician. pm1 16:37 Kayleigh Williamson, RN is Primary Nurse. 16:39 Triage completed. ch 16:41 Arm band placed on left wrist. Patient placed in an exam room, on a stretcher, on pulse ch oximetry. 16:44 Patient has correct armband on for positive identification. Bed in low position. Call light in reach. Side rails up X 1. Pulse ox on. NIBP on. Warm blanket given. 16:44 I chaperoned exam of labia by Clifton. 17:00 Inserted saline lock: 22 gauge in right upper arm, using aseptic technique. Blood ch collected. 17:49 Harinder Nieto MD is Referral Physician. pm1 18:07 No apparent distress. Resting quietly. ch 18:07 IV discontinued, intact, bleeding controlled, No redness/swelling at site. Pressure ch dressing applied. Administered Medications: No medications were administered Outcome: 17:50 Discharge ordered by . pm1 18:07 Discharged to home ambulatory, with family. 18:07 Condition: stable 18:07 Discharge instructions given to patient, Instructed on discharge instructions, follow up and referral plans. no drinking with medication, medication usage, Demonstrated understanding of instructions, follow-up care, medications, Prescriptions given X 1. 18:10 Patient left the ED. Signatures: Kayleigh Williamson, KIRILL RN Giana Villalobos mr Clifton Valle NP [employer] pm1
--- NOTE | 2018-01-06 17:51 | EDPHYS ---
Physician Documentation [facility] Name: Melba Rooney Age: 52 yrs Sex: Female : 1965 Arrival Date: 01/06/2018 Time: 16:08 Bed 13 Private MD: Harinder Nieto ED Physician Ernesto Valente HPI: 01/06 17:00 This 52 yrs old Female presents to ER via Ambulatory with complaints of pm1 Abscess. 17:00 The patient presents with an abscess of the left labia majora. Description: swollen. pm1 Onset: The symptoms/episode began/occurred 4 day(s) ago. Possible cause(s): unknown. Associated signs and symptoms: Pertinent positives: drainage when it was expressed yesterday, Pertinent negatives: erythema, fever. Modifying factors: the symptoms are alleviated by squeezing the lesion and expressing the contents, the symptoms are aggravated by squeezing the lesion and expressing the contents. Severity of symptoms: in the emergency department the symptoms have improved. The patient has experienced similar episodes in the past, multiple times. The patient has not recently seen a physician. Patient with a history of MRSA and multiple abscesses. Patient with two small abscess on left thigh and one small abscess on left hamstring area. Patient's main complaint is abscess to left labial area. Patient's boyfriend expressed her abscesses on the left labial and on her left hamstring. 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 - Social history:: Smoking status: Patient uses tobacco products, smokes one pack cigarettes per day. Patient/guardian denies using alcohol, street drugs. - Ebola Screening: : Patient negative for fever greater than or equal to 101.5 degrees Fahrenheit, and additional compatible Ebola Virus Disease symptoms Patient denies exposure to infectious person Patient denies travel to an Ebola-affected area in the 21 days before illness onset No symptoms or risks identified at this time. ROS: 17:00 Constitutional: Negative for fever, chills, and weight loss, Eyes: Negative for injury, pm1 pain, redness, and discharge, ENT: Negative for injury, pain, and discharge, Neck: Negative for injury, pain, and swelling, Cardiovascular: Negative for chest pain, palpitations, and edema, Respiratory: Negative for shortness of breath, cough, wheezing, and pleuritic chest pain, Abdomen/GI: Negative for abdominal pain, nausea, vomiting, diarrhea, and constipation, Back: Negative for injury and pain, : Negative for injury, bleeding, discharge, and swelling, MS/Extremity: Negative for injury and deformity. 17:00 Neuro: Negative for headache, weakness, numbness, tingling, and seizure. 17:00 Skin: Positive for abscess. Exam: 17:00 Constitutional: This is a well developed, well nourished patient who is awake, alert, pm1 and in no acute distress. Head/Face: Normocephalic, atraumatic. Eyes: Pupils equal round and reactive to light, extra-ocular motions intact. Lids and lashes normal. Conjunctiva and sclera are non-icteric and not injected. Cornea within normal limits. Periorbital areas with no swelling, redness, or edema. ENT: Nares patent. No nasal discharge, no septal abnormalities noted. Tympanic membranes are normal and external auditory canals are clear. Oropharynx with no redness, swelling, or masses, exudates, or evidence of obstruction, uvula midline. Mucous membranes moist. Neck: Trachea midline, no thyromegaly or masses palpated, and no cervical lymphadenopathy. Supple, full range of motion without nuchal rigidity, or vertebral point tenderness. No Meningismus. Chest/axilla: Normal chest wall appearance and motion. Nontender with no deformity. No lesions are appreciated. Cardiovascular: Regular rate and rhythm with a normal S1 and S2. No gallops, murmurs, or rubs. Normal PMI, no JVD. No pulse deficits. Respiratory: Lungs have equal breath sounds bilaterally, clear to auscultation and percussion. No rales, rhonchi or wheezes noted. No increased work of breathing, no retractions or nasal flaring. Abdomen/GI: Soft, non-tender, with normal bowel sounds. No distension or tympany. No guarding or rebound. No evidence of tenderness throughout. Back: No spinal tenderness. No costovertebral tenderness. Full range of motion. 17:24 MS/ Extremity: Pulses equal, no cyanosis. Neurovascular intact. Full, normal range pm1 of motion. 17:24 Skin: Appearance: normal except for affected area, abscess, that is small, of the left labia majora, No drainage, fluctuance, pointing, or surrounding cellulitis, Small scab present to left hamstring area and 2 small scabs to left anterior thigh. No surrounding cellulitis, fluctuance, pointing, or drainage. 17:24 Neuro: Orientation: is normal, Motor: is normal, moves all fours, Gait: is steady, at a normal pace, without difficulty. Vital Signs: 16:41 BP 153 / 86; Pulse 82; Resp 14; Temp 97.4; Pulse Ox 99% on R/A; Weight 81.65 kg; Height ch 5 ft. 8 in. (172.72 cm); Pain 8/10; 17:35 BP 146 / 72; Pulse 76; Resp 15; Temp 98.3; Pulse Ox 99% on R/A; Pain 8/10; ch 16:41 Body Mass Index 27.37 (81.65 kg, 172.72 cm) ch MDM: 16:15 Patient medically screened. pm1 17:24 Data reviewed: vital signs. Data interpreted: Pulse oximetry: on room air is 99 %. pm1 Interpretation: normal. 17:48 Refusal of service: The patient/guardian displays adequate decision making capability pm1 and despite a detailed discussion of alternatives, benefits, risks, and consequences refuses: Admission to the hospital for further work-up and treatment, Waiting for lab results. Patient wants to go home. Will prescribe the patient antibiotics. 01/06 16:27 Order name: Basic Metabolic Panel; Complete Time: 17:51 pm1 01/06 16:27 Order name: CBC with Diff; Complete Time: 17:34 pm1 01/06 16:27 Order name: Hepatic Function; Complete Time: 17:51 pm1 01/06 16:27 Order name: UDS; Complete Time: 17:34 pm1 01/06 16:27 Order name: Procalcitonin pm1 01/06 17:05 Order name: Urine Dipstick--Ancillary (enter results); Complete Time: 17:34 bd 01/06 16:27 Order name: IV Saline Lock; Complete Time: 17:35 pm1 01/06 16:27 Order name: Labs collected and sent; Complete Time: 17:35 pm1 01/06 16:27 Order name: Urine Dipstick-Ancillary (obtain specimen); Complete Time: 17:35 pm1 Administered Medications: No medications were administered Disposition: 01/06/18 17:50 Discharged to Home. Impression: Cutaneous abscess of groin. - Condition is Stable. - Discharge Instructions: Skin Abscess. - Prescriptions for Clindamycin HCl 300 mg Oral Capsule - take 1 capsule by ORAL route every 6 hours for 10 days; 40 capsule. - Medication Reconciliation Form, Thank You Letter, Antibiotic Education, Prescription Opioid Use form. - Follow up: Emergency Department; When: As needed; Reason: Worsening of condition. Follow up: Harinder Nieto MD; When: 2 - 3 days; Reason: Recheck today's complaints, Continuance of care, Re-evaluation by your physician. - Problem is new. - Symptoms have improved. Addendum: 01/08/2018 07:05 Co-signature as Attending Physician, Ernesto Valente MD. r n Signatures: Dispatcher [employer] EDMS Kayleigh Williamson RN RN Ernesto Valente MD MD rn Marinas, Patrick, [address] CROSS[address] GUARD pm1 Corrections: (The following items were deleted from the chart) 01/06 17:05 16:27 Urine Test ordered. pm1 pm1 17:33 17:00 Skin: Appearance: normal except for affected area, cellulitis, is not pm1 appreciated, pm1 18:10 17:50 01/06/2018 17:50 Discharged to Home. Impression: Cutaneous abscess of groin. ch Condition is Stable. Forms are Medication Reconciliation Form, Thank You Letter, Antibiotic Education, Prescription Opioid Use. Follow up: Emergency Department; When: As needed; Reason: Worsening of condition. Follow up: Harinder Nieto; When: 2 - 3 days; Reason: Recheck today's complaints, Continuance of care, Re-evaluation by your physician. Problem is new. Symptoms have improved. pm1
[2018-01-06 18:22] VITALS: O2SAT 99
[2018-01-06 18:23] VITALS: BP 146/72; TEMP 98.3
== END 2018-01-06 18:10 | disposition home or self-care (01) ==
LOC: ER 16:06
DX: N76.4 Abscess of vulva (principal); I10 Essential (primary) hypertension; Z22.322 Carrier or suspected carrier of Methicillin resistant Staphylococcus aureus; K21.9 Gastro-esophageal reflux disease without esophagitis; F17.210 Nicotine dependence, cigarettes, uncomplicated
CPT/HCPCS: 36415; 80048; 80076; 80307; 81003; 84145; 85025; 99284

== ENCOUNTER 2018-01-11 15:32 | Inpatient (IN) | payer OTHER ==
[2018-01-11 17:38] LABS: Urine Blood TRACE (NEG); Urine Glucose NEGATIVE (NEG); Urine Protein NEGATIVE (NEG); Urine Specific Gravity 1.025 (1.005-1.030); Urine pH 6.5 (5.0-7.0)
[2018-01-11] MEDS ORDERED: NA CHLORIDE 0.9% 1,000 ML ONE (18:22)
[2018-01-11] MEDS ORDERED: DOXYCYCLINE 100 MG CAP PO ONE (18:22)
[2018-01-11 18:32] LABS: Absolute Lymphocytes (CBC) 0.9 K/uL (0.7-4.9); Absolute Monocytes 0.4 K/uL (0.1-1.3); Absolute Neutrophil 3.7 K/uL (1.8-8.0); Basophils % 0.5 % (0-1.3); Eosinophils % 3.1 % (0-4.4); Hematocrit 30.9 % (36.0-45.0); Lymphocytes % 17.2 % (15.3-44.8); MCH 32.2 pg (27.0-35.0); MCV 95.2 fL (80-100); MPV 11.7 fL (7.6-11.3); Monocytes % 7.7 % (3.3-12.3); RBC Red Blood Cell Count 3.25 M/uL (3.86-4.86)
[2018-01-11] MEDS ORDERED: HYDROCODONE/APAP 10/325 TAB ONE (18:38)
[2018-01-11 18:41] LABS: ALT/SGPT 93 U/L (12-78); AST/SGOT 126 U/L (15-37); Albumin 3.1 g/dL (3.4-5.0); Alkaline Phosphatase 563 U/L (45-117); BUN Blood Urea Nitrogen 14 mg/dL (7-18); Bicarbonate 28 mmol/L (21-32); Bilirubin Direct 0.2 mg/dL (0-0.2); Bilirubin Total 0.5 mg/dL (0.2-1.0); Glucose Level 89 mg/dL (74-106); Protein, Total 7.3 g/dL (6.4-8.2); Sodium Level 139 mmol/L (136-145)
[2018-01-11] MEDS ORDERED: VANCOMYCIN 1.5 GM in NA CHLORIDE 0.9% 500 ML IVPB ONE (19:00)
--- NOTE | 2018-01-11 19:44 | ER ---
Nurse's Notes [facility] Name: Melba Rooney Age: 52 yrs Sex: Female : 1965 Arrival Date: 01/11/2018 Time: 15:34 Bed 14 Private MD: Diagnosis: Cutaneous abscess of groin;Cutaneous abscess of right lower limb;Cellulitis of left lower limb-failed outpatient therapy Presentation: 01/11 16:04 Presenting complaint: Patient states: She was seen in this ER on for an aj1 abscess to the right thigh and another to on her labia and another on the back of her right thigh. Reports that she was sent home on Clindamycin. She has been taking that but it has not been getting any better. She saw Dr. Nickerson today, and was told that she had to come through the emergency room to be admitted for surgery to drain the abscesses. Transition of care: patient was not received from another setting of care. Onset of symptoms was December 2017. Risk Assessment: Do you want to hurt yourself or someone else? Patient reports no desire to harm self or others. Initial Sepsis Screen: Does the patient meet any 2 criteria? No. Patient's initial sepsis screen is negative. Does the patient have a suspected source of infection? No. Patient's initial sepsis screen is negative. Care prior to arrival: None. 16:04 Method Of Arrival: Ambulatory aj1 16:04 Acuity: NED 3 aj1 Triage Assessment: 16:08 General: Appears in no apparent distress. uncomfortable, Behavior is calm, cooperative, aj1 appropriate for age. Pain: Pain currently is 9 out of 10 on a pain scale. Neuro: Level of Consciousness is awake, alert, obeys commands. Cardiovascular: Patient's skin is warm and dry. Respiratory: Airway is patent Respiratory effort is even, unlabored, Respiratory pattern is regular, symmetrical. 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 - Social history:: Smoking status: Patient uses tobacco products, smokes one pack cigarettes per day. - Ebola Screening: : Patient denies travel to an Ebola-affected area in the 21 days before illness onset. Screenin:44 Abuse screen: Denies threats or abuse. Denies injuries from another. Nutritional ph screening: No deficits noted. Tuberculosis screening: No symptoms or risk factors identified. Fall Risk None identified. Assessment: 16:50 General: Appears in no apparent distress. uncomfortable, obese, Behavior is calm, ph cooperative, appropriate for age, Denies fever. Pain: Complains of pain in left labia majora and left gluteus josh and medial aspect of right thigh Pain currently is 10 out of 10 on a pain scale. Neuro: Level of Consciousness is awake, alert, obeys commands, Oriented to person, place, time, situation. Cardiovascular: Capillary refill < 3 seconds Patient's skin is warm and dry. Respiratory: Airway is patent Respiratory effort is even, unlabored, Respiratory pattern is regular, symmetrical. GI: No signs and/or symptoms were reported involving the gastrointestinal system. Patient currently denies diarrhea, nausea, vomiting. : No signs and/or symptoms were reported regarding the genitourinary system. Derm: Skin is healthy with good turgor, Skin is Abscess located on left labia majora and left gluteus josh and medial aspect of right thigh has no drainage, is hot to touch, is red, is raised. Musculoskeletal: Circulation, motion, and sensation intact. Range of motion: intact in all extremities. 18:00 Reassessment: Patient appears in no apparent distress at this time. Patient and/or ph family updated on plan of care and expected duration. Pain level reassessed. Patient is alert, oriented x 3, equal unlabored respirations, skin warm/dry/pink. 18:43 Reassessment: Patient appears in no apparent distress at this time. Patient and/or ph family updated on plan of care and expected duration. Pain level reassessed. Patient is alert, oriented x 3, equal unlabored respirations, skin warm/dry/pink. 19:00 Reassessment: RECD REPORT FROM SHARRON ROY. 52YO WF P/W MX ABSCESSES, FAILED OUTPATIENT bp ABX THERAPY. PT REPORTS REFERRED TO ER BY DR JESSICA MCHUGH. 20:22 Reassessment: PT RETURNED FROM CT, ADMIT IN PROCESS. bp Vital Signs: 16:08 BP 133 / 81; Pulse 72; Resp 18; Temp 97.8(TE); Pulse Ox 97% on R/A; Weight 81.65 kg aj1 (R); Height 5 ft. 8 in. (172.72 cm) (R); Pain 9/10; 17:00 BP 102 / 70; Pulse 67; Resp 17; Pulse Ox 98% on R/A; mh5 18:36 BP 105 / 77; Pulse 65; Resp 18; Pulse Ox 98% on R/A; mh5 19:21 BP 124 / 66; Pulse 65; Resp 16; Pulse Ox 99% on R/A; mt 20:30 BP 122 / 87; Pulse 64; Resp 14; Pulse Ox 98% ; bp 16:08 Body Mass Index 27.37 (81.65 kg, 172.72 cm) aj1 ED Course: 15:34 Patient arrived in ED. sb2 16:07 Triage completed. aj1 16:08 Arm band placed on Patient placed in waiting room, Patient notified of wait time. aj1 16:34 Baylee Moreno FNP-C is PHCP. snw 16:34 Viraj Keenan MD is Attending Physician. snw 16:35 Baylee Moreno FNP-C is PHCP. snw 17:09 Sharron Adamson, KIRILL is Primary Nurse. ph 18:00 Missed attempt(s): 20 gauge in right forearm. Bleeding controlled, band aid applied, ph catheter tip intact. 18:05 Inserted saline lock: 24 gauge in right hand, using aseptic technique. ph 18:45 Patient has correct armband on for positive identification. Bed in low position. Call ph light in reach. Side rails up X 1. Pulse ox on. NIBP on. Warm blanket given. 19:41 Yi Roy MD is Hospitalizing Provider. snw 20:41 No provider procedures requiring assistance completed. Patient admitted, IV remains in bp place. Administered Medications: 18:35 Drug: Doxycycline 100 mg Route: PO; ph 19:04 Follow up: Response: No adverse reaction ph 18:35 Drug: NS 0.9% 1000 ml Route: IV; Rate: 125 ml/hr; Site: right hand; ph 20:42 Follow up: IV Status: Infusion continued upon admission; IV Intake: 375ml bp 18:35 Drug: Merlin 10 mg-325 mg 1 tabs Route: PO; ph 19:04 Follow up: Response: No adverse reaction ph 19:00 Drug: vancoMYCIN 1 grams {Note: DOSING ADJUSTED TO 1.5GM IN 500ML BY PHARMACY.} Route: bp IVPB; Infused Over: 2 hrs; Site: right antecubital; 20:41 Follow up: IV Status: Infusion continued upon admission bp Intake: 20:42 IV: 375ml; Total: 375ml. bp Outcome: 19:43 Decision to Hospitalize by Provider. snw 20:40 Admitted to Med/surg accompanied by tech, via stretcher, room 214, with chart, Report bp called to STEVEN ROY 20:40 Condition: stable 20:40 Instructed on the need for admit. 21:05 Patient left the ED. bp Signatures: Venita Romero RN RN aj1 Baylee Moreno, MIDDLE SCHOOL PROFESSIONAL-C [employer]DLE SCHOOL PROFESSIONAL-Sharron Ortega RN RN Giana Nickerson [facility] Alvaro Yee RN RN bp Carolina Ware sb2 Corrections: (The following items were deleted from the chart) 18:42 18:35 vancoMYCIN 1 grams IVPB in right hand over 2 hrs ph ph
--- NOTE | 2018-01-11 19:44 | EDPHYS ---
Physician Documentation [facility] Name: Melba Rooney Age: 52 yrs Sex: Female : 1965 Arrival Date: 01/11/2018 Time: 15:34 Bed 14 Private MD: ED Physician Viraj Keenan HPI: 01/11 16:56 This 52 yrs old Female presents to ER via Ambulatory with complaints of snw Abscess. 16:56 The patient presents with an abscess of the medial aspect of right thigh and left labia snw majora, the patient presents with a swollen area of the left lateral buttock - hematoma. Description: erythematous, pointed, swollen, warm, on abx since 01/06/18. 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 - Social history:: Smoking status: Patient uses tobacco products, smokes one pack cigarettes per day. - Ebola Screening: : Patient denies travel to an Ebola-affected area in the 21 days before illness onset. ROS: 16:59 Constitutional: Negative for fever, chills, and weight loss, Eyes: Negative for injury, snw pain, redness, and discharge, ENT: Negative for injury, pain, and discharge, Neck: Negative for injury, pain, and swelling, Cardiovascular: Negative for chest pain, palpitations, and edema, Respiratory: Negative for shortness of breath, cough, wheezing, and pleuritic chest pain, Abdomen/GI: Negative for abdominal pain, nausea, vomiting, diarrhea, and constipation. 16:59 MS/Extremity: Negative for injury and deformity, Neuro: Negative for headache, weakness, numbness, tingling, and seizure, Psych: Negative for depression, anxiety, suicide ideation, homicidal ideation, and hallucinations. 16:59 Back: Positive for injury or acute deformity, pain at rest, pain with movement, at bra line, s/p fall down some stairs. 16:59 Skin: Positive for abscess, cellulitis. Exam: 17:00 Constitutional: This is a well developed, well nourished patient who is awake, alert, snw and in no acute distress. Head/Face: Normocephalic, atraumatic. Eyes: Pupils equal round and reactive to light, extra-ocular motions intact. Lids and lashes normal. Conjunctiva and sclera are non-icteric and not injected. Cornea within normal limits. Periorbital areas with no swelling, redness, or edema. ENT: Nares patent. No nasal discharge, no septal abnormalities noted. Tympanic membranes are normal and external auditory canals are clear. Oropharynx with no redness, swelling, or masses, exudates, or evidence of obstruction, uvula midline. Mucous membranes moist. Neck: Trachea midline, no thyromegaly or masses palpated, and no cervical lymphadenopathy. Supple, full range of motion without nuchal rigidity, or vertebral point tenderness. No Meningismus. Chest/axilla: Normal chest wall appearance and motion. Nontender with no deformity. No lesions are appreciated. Cardiovascular: Regular rate and rhythm with a normal S1 and S2. No gallops, murmurs, or rubs. Normal PMI, no JVD. No pulse deficits. Respiratory: Lungs have equal breath sounds bilaterally, clear to auscultation and percussion. No rales, rhonchi or wheezes noted. No increased work of breathing, no retractions or nasal flaring. Abdomen/GI: Soft, non-tender, with normal bowel sounds. No distension or tympany. No guarding or rebound. No evidence of tenderness throughout. 17:00 MS/ Extremity: Pulses equal, no cyanosis. Neurovascular intact. Full, normal range of motion. Neuro: Awake and alert, GCS 15, oriented to person, place, time, and situation. Cranial nerves II-XII grossly intact. Motor strength 5/5 in all extremities. Sensory grossly intact. Cerebellar exam normal. Normal gait. 17:00 Back: pain, that is moderate, of the left subscapular area and right subscapular area, normal spinal alignment noted, vertebral tenderness, is not appreciated, muscle spasm, is not present. 17:00 Skin: Appearance: ecchymosis, noted on the, left gluteus josh, abscess, that is moderate sized, that is large, of the medial aspect of right thigh, with induration, with pointing, with surrounding cellulitis, left labia majora also with tender, induration. Vital Signs: 16:08 BP 133 / 81; Pulse 72; Resp 18; Temp 97.8(TE); Pulse Ox 97% on R/A; Weight 81.65 kg aj1 (R); Height 5 ft. 8 in. (172.72 cm) (R); Pain 9/10; 17:00 BP 102 / 70; Pulse 67; Resp 17; Pulse Ox 98% on R/A; mh5 18:36 BP 105 / 77; Pulse 65; Resp 18; Pulse Ox 98% on R/A; mh5 19:21 BP 124 / 66; Pulse 65; Resp 16; Pulse Ox 99% on R/A; mt 20:30 BP 122 / 87; Pulse 64; Resp 14; Pulse Ox 98% ; bp 16:08 Body Mass Index 27.37 (81.65 kg, 172.72 cm) aj1 MDM: 16:35 Patient medically screened. snw 19:40 Data reviewed: vital signs, nurses notes. Data interpreted: Pulse oximetry: on room air snw is 99 %. Interpretation: normal. Counseling: I had a detailed discussion with the patient and/or guardian regarding: the historical points, exam findings, and any diagnostic results supporting the discharge/admit diagnosis, lab results, radiology results, the need for further work-up and treatment in the hospital. Physician consultation: Yi Roy MD was called at 19:40, was contacted at 19:40, regarding admission, to the medical/surgical unit. would like consultation with Dr. Dr. Nickerson. Dr. Gutierrez will consult post CT results. 01/11 17:20 Order name: Basic Metabolic Panel; Complete Time: 18:41 snw 01/11 17:20 Order name: CBC with Diff; Complete Time: 18:37 snw 01/11 17:20 Order name: Hepatic Function; Complete Time: 18:41 snw 01/11 17:20 Order name: Blood Culture Adult (2) snw 01/11 17:36 Order name: Urine Dipstick--Ancillary (enter results); Complete Time: 17:40 bd 01/11 18:39 Order name: Add On-Lab snw 01/11 17:20 Order name: IV Saline Lock; Complete Time: 18:43 snw 01/11 18:51 Order name: Procalcitonin; Complete Time: 21:00 EDMS 01/11 19:33 Order name: CT Abd/Pelvis - W/Contrast snw 01/11 20:51 Order name: CT; Complete Time: 20:58 EDMS 01/11 17:20 Order name: Labs collected and sent; Complete Time: 18:43 snw Administered Medications: 18:35 Drug: Doxycycline 100 mg Route: PO; ph 19:04 Follow up: Response: No adverse reaction ph 18:35 Drug: NS 0.9% 1000 ml Route: IV; Rate: 125 ml/hr; Site: right hand; ph 20:42 Follow up: IV Status: Infusion continued upon admission; IV Intake: 375ml bp 18:35 Drug: [place] 10 mg-325 mg 1 tabs Route: PO; ph 19:04 Follow up: Response: No adverse reaction ph 19:00 Drug: vancoMYCIN 1 grams {Note: DOSING ADJUSTED TO 1.5GM IN 500ML BY PHARMACY.} Route: bp IVPB; Infused Over: 2 hrs; Site: right antecubital; 20:41 Follow up: IV Status: Infusion continued upon admission bp Disposition: 01/12 07:00 Co-signature as Attending Physician, Viraj Keenan MD I agree with the assessment and everett plan of care. Disposition: 01/11/18 19:43 Hospitalization ordered by Yi Roy for Inpatient Admission. Preliminary diagnosis are Cutaneous abscess of groin, Cutaneous abscess of right lower limb, Cellulitis of left lower limb - failed outpatient therapy. - Bed requested for Telemetry/MedSurg (Inpatient). - Status is Inpatient Admission. bp - Condition is Stable. - Problem is an acute exacerbation. - Symptoms are unchanged. UTI on Admission? No Signatures: Dispatcher [employer] [facility] Liliana Marino rg2 Venita Romero RN RN aj1 Viraj Keenan MD MD cha Therrien, Shelly, FNP-C LOSS PREVENTION REPRESENTATIVE-CsnSharron Lagunas, KIRILL RN Alvaro Yee RN RN bp Corrections: (The following items were deleted from the chart) 01/11 20:21 19:43 Hospitalization Ordered by Yi Roy MD for Inpatient Admission. Preliminary rg2 diagnosis is Cutaneous abscess of groin; Cutaneous abscess of right lower limb; Cellulitis of left lower limb - failed outpatient therapy. Bed requested for Telemetry/MedSurg (Inpatient). Status is Inpatient Admission. Condition is Stable. Problem is an acute exacerbation. Symptoms are unchanged. UTI on Admission? No. snw 21:05 20:21 01/11/2018 19:43 Hospitalization Ordered by Yi Roy MD for Inpatient bp Admission. Preliminary diagnosis is Cutaneous abscess of groin; Cutaneous abscess of right lower limb; Cellulitis of left lower limb - failed outpatient therapy. Bed requested for Telemetry/MedSurg (Inpatient). Status is Inpatient Admission. Condition is Stable. Problem is an acute exacerbation. Symptoms are unchanged. UTI on Admission? No. rg2
[2018-01-11] MEDS ORDERED: ACETAMINOPHEN 500 MG TAB PO PRN (20:31)
[2018-01-11] MEDS ORDERED: ONDANSETRON 4 MG/2 ML VIAL IV PRN (20:31)
--- NOTE | 2018-01-11 20:51 | RAD REPORT ---
EXAM DESCRIPTION: CT - Abdomen Pelvis W Contrast - 01/11/2018 8:14 pm CLINICAL HISTORY: Abdominal pain/pelvic abscess. COMPARISON: none. TECHNIQUE: Computed axial tomography of the abdomen pelvis was obtained. 100 cc Isovue-300 was admin istered intravenously. Oral contrast was not requested which limits evaluation of bowel. All CT scans are performed using dose optimization technique as appropriate and may include automated exposure control or mA/KV adjustment according to patient size. FINDINGS: The liver, pancreas, adrenal and kidneys appear unremarkable. The spleen measures 14 centimeters. The gallbladder is been removed There is no evidence of diverticulitis. The appendix is normal A ventral hernia above the umbilicus contains fat. The herniated sac measures 44 millimeters. The nec k measures 26 millimeters. A periumbilical hernia contains fat. The neck measures 25 millimeters. A hysterectomy has been performed. An adnexal mass is not noted. An approximately 4 centimeter fluid collection is present within the left labia. Mild edema is present within the anteromedial subcutaneous fat of right thigh. Ill-defined increased density is present within the subcutaneous fat of the left buttocks measuring a pproximately 80 x 20 millimeters. IMPRESSION: 4 centimeter fluid collection within the left labia likely representing an abscess Mild edema within the anteromedial subcutaneous tissues of the right thigh may represent a cellulitis Ill-defined increased density within the subcutaneous fat of the left buttocks may represent a hemato ma Ventral and periumbilical hernias containing fat Mild splenomegaly
[2018-01-11] MEDS: NA CHLORIDE 0.9% 1,000 ML IV SCH (21:00)
[2018-01-11] MEDS: HYDROMORPHONE HCL 1 MG/ML INJ IV PRN (23:18)
[2018-01-12] MEDS ORDERED: NA CHLORIDE 0.9% 50 ML ONE (00:46)
[2018-01-12] MEDS ORDERED: CLINDAMYCIN IV 150 MG/ML (6 mL) VIAL ONE (00:47)
[2018-01-12] MEDS: CLINDAMYCIN INJ 600 MG in NA CHLORIDE 0.9% 50 ML IV SCH ×3 (01:00→17:21)
[2018-01-12] MEDS: HYDROMORPHONE HCL 1 MG/ML INJ IV PRN ×4 (05:36→22:38)
[2018-01-12 06:07] LABS: RBC Red Blood Cell Count 3.33 M/uL (3.86-4.86)
[2018-01-12 06:08] LABS: Absolute Lymphocytes (CBC) 0.7 K/uL (0.7-4.9); Absolute Monocytes 0.4 K/uL (0.1-1.3); Absolute Neutrophil 3.5 K/uL (1.8-8.0); Basophils % 0.4 % (0-1.3); Eosinophils % 3.2 % (0-4.4); Hematocrit 31.4 % (36.0-45.0); Lymphocytes % 14.5 % (15.3-44.8); MCH 32.6 pg (27.0-35.0); MCV 94.3 fL (80-100); Monocytes % 8.9 % (3.3-12.3)
[2018-01-12 06:25] LABS: BUN Blood Urea Nitrogen 11 mg/dL (7-18); Bicarbonate 27 mmol/L (21-32); Glucose Level 89 mg/dL (74-106); Potassium 4.1 mmol/L (3.5-5.1); Sodium Level 141 mmol/L (136-145)
[2018-01-12] MEDS ORDERED: VANCOMYCIN 1.5 GM in NA CHLORIDE 0.9% 500 ML IVPB SCH (07:00)
[2018-01-12 07:31] LABS: Blood Morphology Comment NOT SEEN (NOT SEEN); Platelet Estimate DECR; Urine White Blood Cell Casts OK
[2018-01-12] MEDS: VANCOMYCIN 1.5 GM in NA CHLORIDE 0.9% 500 ML IVPB SCH ×2 (09:26→21:00)
[2018-01-12] MEDS: NA CHLORIDE 0.9% 1,000 ML IV SCH ×2 (10:20→21:00)
--- NOTE | 2018-01-12 10:48 | P.HP ---
Certification for Inpatient Patient admitted to: Inpatient With expected LOS: >2 Midnights Patient will require the following post-hospital care: None Practitioner: I am a practitioner with admitting privileges, knowledge of patient current condition, hospital course, and medical plan of care. Services: Services provided to patient in accordance with Admission requirements found in Title 42 Section 412.3 of the Code of Federal Regulations Patient History Date of Service: 01/11/18 Reason for admission: Labial abscess and groin abscess History of Present Illness: Patient is a 52-year-old female who came into the hospital with multiple MRSA infections. She comes in this time with a labial as well as a right groin abscess. Patient has been started on IV antibiotics. She will needed I and D. According to the emergency room they consulted Dr. Nickerson and as well as attempted to contact Ob, Dr. Bartlett. However, at this time will continue with IV antibiotics and will get surgery input. Pain control as well. Allergies No Known Allergies Allergy (Verified 01/12/18 04:08) Home Medications: Fluoxetine HCl [Prozac] 40 mg PO DAILY 01/12/18 Gabapentin [Neurontin*] 300 mg PO QID 01/12/18 Hydrocodone/Acetaminophen [Hydrocodone-Acetamin 10-325 mg] 1 tab PO QID PRN Lisinopril [Prinivil*] 20 mg PO DAILY 01/12/18 Trazodone HCl [Desyrel] 1 tab PO BEDTIME PRN 01/12/18 - Past Medical/Surgical History Has patient received pneumonia vaccine in the past: No Diabetic: No -: HTN -: GERD -: Ulcers -: Depression -: MRSA infection -: Hysterectomy -: -: Cholecystectomy -: Left Upper arm surgery x 8 -: Incision and debridement for MRSA - Family History Father Notes: pt was adopted Mother Notes: pt was adopted - Social History Smoking Status: Current some day smoker Place of Residence: Home Review of Systems 10-point ROS is otherwise unremarkable Physical Examination - Vital Signs Temperature: 97.3 F Blood Pressure: 150/78 Pulse: 72 Respirations: 18 Pulse Ox (%): 97 - Physical Exam General: Alert, In no apparent distress, Oriented x3 HEENT: Atraumatic, PERRLA, Mucous membr. moist/pink, EOMI, Sclerae nonicteric Neck: Supple, 2+ carotid pulse no bruit, No LAD, Without JVD or thyroid abnormality Respiratory: Clear to auscultation bilaterally, Normal air movement Cardiovascular: Regular rate/rhythm, Normal S1 S2 Gastrointestinal: Normal bowel sounds, Soft and benign, Non-distended, No tenderness Musculoskeletal: No clubbing, No tenderness, Swelling Integumentary: No rashes, Skin breakdown, Tenderness/swelling, Erythema Neurological: Normal gait, Normal speech, Normal strength at 5/5 x4 extr, Normal tone, Sensation intact, Cranial nerves 3-12 intact, Normal affect Lymphatics: No axilla or inguinal lymphadenopathy - Studies Laboratory Data (last 24 hrs) 01/11/18 18:05: WBC 5.2 D, Hgb 10.5 L, Hct 30.9 L, Plt Count 101 L 01/11/18 18:05: Sodium 139, Potassium 4.0, BUN 14, Creatinine 0.60, Glucose 89, Total Bilirubin 0.5, AST 126 H, ALT 93 H, Alkaline Phosphatase 563 H Female Exam - Female Pelvic Vagina: Lesions Assessment & Plan - Problems (Diagnosis) (1) Abscess of right groin Current Visit: Yes Status: Acute (2) Labial abscess Current Visit: Yes Status: Acute (3) Cellulitis Onset Date: 01/12/18 Current Visit: Yes Status: Acute (4) Depression Current Visit: No Status: Chronic Qualifiers: (5) Hypertension Current Visit: No Status: Chronic Qualifiers: (6) Poor dentition Current Visit: No Status: Chronic - Plan 1. Continue with IV antibiotic 2. Continue with local wound care 3. Surgical consultation 4. Gentle IV hydration 5. Monitor CBC 6. Strict blood sugar monitoring 7. Pain control 8. GI and DVT prophylaxis Discharge Plan: Home Plan to discharge in: Greater than 2 days - Advance Directives Does patient have a Living Will: No Does patient have a Durable POA for Healthcare: No - Code Status/Comfort Care Code Status Assessed: Yes Code Status: Full Code Critical Care: No Time Spent Managing PTS Care (In Minutes): 50
[2018-01-12] MEDS ORDERED: Ringers Lactate 1,000 ML IV ONE (10:53)
[2018-01-12] MEDS ORDERED: BUPIVACAINE 0.5% PF 10 ML VIAL ONE (11:31)
[2018-01-12] MEDS ORDERED: MIDAZOLAM HCL 2 MG/2 ML INJ ONE (11:38)
[2018-01-12] MEDS ORDERED: LIDOCAINE 1% MPF 5 ML VIAL ONE (11:38)
[2018-01-12] MEDS ORDERED: PROPOFOL 200 MG/20 ML VIAL IV ONE (11:38)
[2018-01-12] MEDS ORDERED: FENTANYL CITR 100 MCG/2 ML ONE (11:39)
[2018-01-12] MEDS ORDERED: ONDANSETRON HCL 40 MG/20 ML VIAL ONE (12:09)
[2018-01-12] MEDS: MEPERIDINE HCL 50 MG/ML AMP ONE ×2 (12:30→12:35)
[2018-01-12] MEDS ORDERED: PROMETHAZINE 25 MG/ML VIAL ONE (12:36)
--- NOTE | 2018-01-12 12:37 | P.BOP ---
Preoperative diagnosis: R inner thigh cellulitis, infected mass with large abscess, L genitalia abs Postoperative diagnosis: same Primary procedure: 1. Excisional biopsy of infected R thigh mass with large complex abscess Secondary procedure: 2. Incision and drainage of left external genitalia complex abscess Estimated blood loss: <10cc Specimen: mass with culture Findings: complex abscess rith thigh and external genitalia Anesthesia: General Complications: None Transferred to: Recovery Room
[2018-01-12] MEDS ORDERED: MEPERIDINE HCL 50 MG/ML AMP ONE (12:50)
[2018-01-12 13:03] VITALS: O2SAT 93
--- NOTE | 2018-01-12 13:18 | P.PN ---
Subjective Date of Service: 01/12/18 Chief Complaint: Labial abscess and groin abscess Pt seen and examined at bedside with RN. Chart Reviewed. Doing well overall. Awaiting surgery reccs at this time Overnight No complains to offer No acute event today either Review of Systems General: As per HPI Physical Examination - Vital Signs Temperature: 97.6 F Blood Pressure: 111/65 Pulse: 69 Respirations: 14 Pulse Ox (%): 97 - Physical Exam General: Alert, In no apparent distress HEENT: Atraumatic, PERRLA, EOMI Neck: Supple, JVD not distended Respiratory: Clear to auscultation bilaterally, Normal air movement Cardiovascular: Regular rate/rhythm, Normal S1 S2 Gastrointestinal: Normal bowel sounds, No tenderness Musculoskeletal: No tenderness Integumentary: Skin breakdown, Skin lesion Neurological: Normal speech, Normal tone, Normal affect Lymphatics: No axilla or inguinal lymphadenopathy - Studies Laboratory Data (last 24 hrs) 01/11/18 18:05: WBC 5.2 D, Hgb 10.5 L, Hct 30.9 L, Plt Count 101 L 01/11/18 18:05: Sodium 139, Potassium 4.0, BUN 14, Creatinine 0.60, Glucose 89, Total Bilirubin 0.5, AST 126 H, ALT 93 H, Alkaline Phosphatase 563 H Medications List Reviewed: Yes Assessment & Plan - Problems (Diagnosis) (1) Abscess of right groin Current Visit: Yes Status: Acute Plan: Abscess of the right groin with labial Abscess -IV vanc and zosyn -Surgery Consulted. Awaiting recc -Possible surgical procedure. -Pending Culture at this time (2) Labial abscess Current Visit: Yes Status: Acute Plan: See@ 1 (3) History of MRSA infection Onset Date: 11/22/17 Current Visit: No Status: Chronic (4) Chronic pain Current Visit: No Status: Chronic Qualifiers: Chronic pain type: chronic pain syndrome Qualified Code(s): G89.4 - Chronic pain syndrome (5) Depression Current Visit: No Status: Chronic Qualifiers: Depression Type: major depressive disorder Major depression recurrence: unspecified whether recurrent Active/Remission status: currently active Major depression episode severity: unspecified Qualified Code(s): F32.9 - Major depressive disorder, single episode, unspecified (6) Hypertension Current Visit: No Status: Chronic Qualifiers: Hypertension type: essential hypertension Discharge Plan: Home Plan to discharge in: 48 Hours - Code Status/Comfort Care Code Status Assessed: Yes Critical Care: No
[2018-01-12] MEDS: GABAPENTIN 300 MG CAP PO SCH ×3 (13:58→21:01)
[2018-01-12] MEDS: HYDROCODONE/APAP 7.5/325 MG TAB PO PRN (21:00)
[2018-01-12 21:37] VITALS: BMI 28.1
[2018-01-13] MEDS: CLINDAMYCIN INJ 600 MG in NA CHLORIDE 0.9% 50 ML IV SCH ×2 (00:59→09:45)
[2018-01-13] MEDS: HYDROMORPHONE HCL 1 MG/ML INJ IV PRN ×2 (04:49→09:46)
[2018-01-13] MEDS: HYDROCODONE/APAP 7.5/325 MG TAB PO PRN ×2 (07:26→12:28)
[2018-01-13] MEDS: VANCOMYCIN 1.5 GM in NA CHLORIDE 0.9% 500 ML IVPB SCH (08:00)
[2018-01-13] MEDS ORDERED: LISINOPRIL 20 MG TAB PO SCH (09:00)
[2018-01-13] MEDS ORDERED: FLUOXETINE 20 MG CAP PO SCH (09:00)
[2018-01-13 09:29] VITALS: BP 120/74; TEMP 97.2
[2018-01-13] MEDS: GABAPENTIN 300 MG CAP PO SCH ×2 (09:45→13:00)
[2018-01-13] MEDS: NA CHLORIDE 0.9% 1,000 ML IV SCH (13:00)
--- NOTE | 2018-01-13 13:49 | P.DS ---
Admission Date: 01/11/18 Discharge Date: 01/13/18 Disposition: ROUTINE DISCHARGE Discharge Condition: GOOD Reason for Admission: Labial abscess and groin abscess Consultations: Dr Nickerson Procedures: I&D - Problems (1) Abscess of right groin Current Visit: Yes Status: Acute (2) Labial abscess Current Visit: Yes Status: Acute (3) History of MRSA infection Onset Date: 11/22/17 Current Visit: No Status: Chronic (4) Chronic pain Current Visit: No Status: Chronic Qualifiers: Chronic pain type: chronic pain syndrome Qualified Code(s): G89.4 - Chronic pain syndrome (5) Depression Current Visit: No Status: Chronic Qualifiers: Depression Type: major depressive disorder Major depression recurrence: unspecified whether recurrent Active/Remission status: currently active Major depression episode severity: unspecified Qualified Code(s): F32.9 - Major depressive disorder, single episode, unspecified (6) Hypertension Current Visit: No Status: Chronic Qualifiers: Hypertension type: essential hypertension Brief History of Present Illness: Patient is a 52-year-old female who came into the hospital with multiple MRSA infections. She comes in this time with a labial as well as a right groin abscess. Patient has been started on IV antibiotics. She will needed I and D. According to the emergency room they consulted Dr. Nickerson and as well as attempted to contact Ob, Dr. Bartlett. However, at this time will continue with IV antibiotics and will get surgery input. Pain control as well. Hospital Course: Overall during the hospital stay patient remained stable The patient was initially admitted to the hospital for inguinal abscess along with labial abscess. General surgery was consulted who took the patient to the OR and did an incision and drainage. Patient had a wound that was found with gauze in normal saline. Patient remained afebrile and had no complications post procedure. While here in the hospital patient insisted on going down to smoke. Patient removed her IVs couple of times and also went down to smoke. Patient was educated extensively on tobacco cessation and agreed with the plan. Patient then today was discharged under stable condition once her pain resolved. Patient was also shown how to sacral wounds due to the location home health was consulted to do wound care at home. Patient was given prescription for ciprofloxacin for antibiotics. Patient then was discharged home under stable condition and was asked to follow up with Dr. Nickerson in about 1-2 days post discharge. Patient was to continue taking the antibiotics for total 14 days Vital Signs/Physical Exam: Temp Pulse Resp BP Pulse Ox 97.2 F 69 18 120/74 96 01/13/18 08:00 01/13/18 08:00 01/13/18 08:00 01/13/18 08:00 01/13/18 08:00 General: Alert, In no apparent distress HEENT: Atraumatic, PERRLA, EOMI Neck: Supple, JVD not distended Respiratory: Clear to auscultation bilaterally, Normal air movement Cardiovascular: Regular rate/rhythm, Normal S1 S2 Gastrointestinal: Normal bowel sounds, No tenderness Musculoskeletal: No tenderness Integumentary: No rashes Neurological: Normal speech, Normal tone, Normal affect Lymphatics: No axilla or inguinal lymphadenopathy Laboratory Data at Discharge: WBC 4.8 K/uL (4.3-10.9) 01/12/18 05:30 Hgb 10.9 g/dL (12.0-15.0) L 01/12/18 05:30 Hct 31.4 % (36.0-45.0) L 01/12/18 05:30 Plt Count 95 K/uL (152-406) L 01/12/18 05:30 Sodium 141 mmol/L (136-145) 01/12/18 05:30 Potassium 4.1 mmol/L (3.5-5.1) 01/12/18 05:30 BUN 11 mg/dL (7-18) 01/12/18 05:30 Creatinine 0.60 mg/dL (0.55-1.3) 01/12/18 05:30 Glucose 89 mg/dL (74-106) 01/12/18 05:30 Total Bilirubin 0.5 mg/dL (0.2-1.0) 01/11/18 18:05 AST 126 U/L (15-37) H 01/11/18 18:05 ALT 93 U/L (12-78) H 01/11/18 18:05 Alkaline Phosphatase 563 U/L (45-117) H 01/11/18 18:05 Home Medications: Fluoxetine HCl [Prozac] 40 mg PO DAILY 01/12/18 Gabapentin [Neurontin*] 300 mg PO QID 01/12/18 Hydrocodone/Acetaminophen [Hydrocodone-Acetamin 10-325 mg] 1 tab PO QID PRN Lisinopril [Prinivil*] 20 mg PO DAILY 01/12/18 Trazodone HCl [Desyrel] 1 tab PO BEDTIME PRN 01/12/18 Ciprofloxacin HCl [Cipro 500 MG Tablet] 500 mg PO BID #28 tab 01/13/18 New Medications: Ciprofloxacin HCl [Cipro 500 MG Tablet] 500 mg PO BID #28 tab Diet: Regular Activity: Ad tomi Followup: Tramaine Nickerson MD [ACTIVE - CAN ADMIT] - 01/18/18 (Wound care center)
[2018-01-13] MEDS ORDERED: VANCOMYCIN 1.5 GM in NA CHLORIDE 0.9% 500 ML IVPB SCH (21:00)
--- NOTE | 2018-01-27 06:05 | OP ---
Date of Procedure: 01/12/2018 Surgeon: Tramaine Nickerson MD Preoperative Diagnoses: Right inner thigh cellulitis, infected mass with large abscess and left ingrid jones abscess. Postoperative Diagnoses: Right inner thigh cellulitis, infected mass with large abscess and left gen royer abscess. Procedures: 1.Excisional biopsy of infected right thigh mass with large complex abscess. 2.Incision and drainage of left external genitalia complex abscess. Anesthesia: General plus local. Specimen: Mass with culture. Finding: Complex abscess in the right thigh with a mass associated with it. External genitalia, the patient has also an abscess that includes part of the perineal region and groin and extends anterior and posterior, does not go to the internal genitalia. Indications: This is the case of a female who comes to us with 2 problems. There is a large abscess in the right inner thigh region, a complex abscess with a mass present with purulent discharge, and also on the left labia, external genitalia, and the groin region with the perineum, the patient has o nce again another abscess. The etiology of that is unknown. The benefits, alternatives, and risks o f incision and drainage with debridement and excisional biopsy of the mass were fully explained to th e patient, which include but are not limited to infection, bleeding, damage to adjacent structures, a nesthesia complication, recurrence, SC, and even . She also understands this may not relieve an y her symptoms. She might need more than one surgical intervention. She understands the importance of good hygiene, also packing in that area, being compliant with antibiotic. She signed a consent. Description Of Procedure: The area of concern was marked by me and the patient in the holding room. The patient was brought to the operating room, placed in supine position. Anesthesia was done witho ut complication. The patient was placed in a lateral position with proper protection. This gave us access to the inner thigh and also external genitalia. The right thigh region was prepped and draped in a sterile fashion first and the external genitalia second. The local anesthetic was applied foll owed by excision of the right thigh mass all the way down to deep subcutaneous tissue. This brought us into a large complex abscess going into the groin region and distally too. We were able to find a ll loculations, explored, opened, drained the pus, and removed the necrotic tissue present. The area was irrigated, hemostasis obtained, and the area was packed with wet-to-dry dressing. After that, w lazaro went to the external genitalia. This included an external labia anterior and posterior, going to t he left side in the perineum, and also between the genitalia and the thigh area. We were able to get access to those by doing incision and drainage and going anterior and posterior and found the locula tions, explored, opened, irrigated the area, and then packed with wet-to-dry dressing. The patient t olerated each procedure well. Local anesthetic was applied. The patient was sent to recovery in sta ble condition. SHARAN/CHRISTINE Voice ID: [id number] Report ID: [id number]
--- NOTE | 2018-01-27 06:23 | DS ---
Date of Discharge: 01/13/2018 Diagnoses: Right inner thigh cellulitis and infected mass with large abscess and also left external genitalia abscess. Procedure: Excisional biopsy of infected right thigh mass with drainage of a complex abscess and inc ision and drainage of left external genitalia complex abscess. Disposition: Home. Activity: As tolerated. No heavy lifting. Followup: Follow up in my office in 1 week. Call for appointment at [phone]. Wet-to-dry dressing normal saline to those 2 areas daily. The patient states she can do the dressing changes. Otherwise , she was offered home health agencies. Medications: For medications, see orders. SHARAN/MODL Voice ID: [id number] Report ID: [id number]
== END 2018-01-13 13:38 | disposition home health service (06) | DRG 746 ==
LOC: ER 15:32 → ERHOLD 19:47 → 2ND 20:27
PROVIDERS: ADMIT Hospitalist; ATTEND Family Medicine
PROC: 0JBL0ZZ Excision of Right Upper Leg Subcutaneous Tissue and Fascia, Open Approach (ICD-10-PCS; 2018-01-12)
PROC: 0U9M0ZX Drainage of Vulva, Open Approach, Diagnostic (ICD-10-PCS; principal; 2018-01-12 13:00)
DX: N76.4 Abscess of vulva (principal); L02.415 Cutaneous abscess of right lower limb; L02.214 Cutaneous abscess of groin; L03.116 Cellulitis of left lower limb; K21.9 Gastro-esophageal reflux disease without esophagitis; F17.210 Nicotine dependence, cigarettes, uncomplicated; G89.4 Chronic pain syndrome; I10 Essential (primary) hypertension; F32.9 Major depressive disorder, single episode, unspecified; K08.9 Disorder of teeth and supporting structures, unspecified; Z86.14 Personal history of Methicillin resistant Staphylococcus aureus infection
CPT/HCPCS: 36415; 74177; 80048; 80076; 80202; 81003; 82962; 84145; 85025; 87040; 87070; 87075; 87077; 87186; 87205; 88304; 96365; 96366; 99285; J1170; J2175; J2250; J2405; J2550; J3010; J7030; Q9967